=== PATIENT | female | born 1940 | race African-American/Black ===

== ENCOUNTER 2016-11-25 09:50 | Inpatient (IN) ==
[2016-11-25 11:00] LABS: Basophils # 0.1 10*3/uL (0.0-0.2); Basophils % 0.8 % (0.0-0.8); Eosinophils # 0.5 10*3/uL (0.0-0.87); Eosinophils % 5.8 % (0.00-10.9); Hematocrit 34.9 VOL% (35.7-47.0); Hemoglobin 12.3 GM/DL (12.0-16.0); Immature Granulocytes % 0.4 %; Immature Granulocytes Absolute 0.03 #; Lymphocytes # 1.6 10*3/uL (1.4-4.0); Mean Corpuscular HGB Conc 35.2 GM/DL (32-36); Mean Corpuscular Hemoglobin 32 PG (27-34); Mean Corpuscular Volume 91.4 FL (87-102); Mean Platelet Volume 10.3 FL (9.6-12.0); Monocytes # 0.6 10*3/uL (0.11-0.8); Monocytes % 7.2 % (1.7-12.7); Neutrophils # 5.1 10*3/uL (1.4-7.4); Neutrophils % 64.8 % (38.7-73.9); Platelet Count 194 T/CUMM (130-400); Red Blood Count 3.82 MC/CUMM (3.8-5.5); Red Cell Distribution Width 12.7 % (9.3-17.3); White Blood Count 7.8 T/CUMM (4-12)
--- NOTE | 2016-11-25 11:01 | EKG Report ---
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
--- NOTE | 2016-11-25 11:02 | Emergency Department Note ---
Arrival - Arrival Chief Complaint: Extremity Problem Stated Complaint: hand swollen and back pain ED Nursing Triage Note: c/o swelling in both hands. onset 2 days ago Mode of Arrival: Wheelchair Limitations: No Limitations Source: Patient, Family Time Seen by Provider: 11/25/16 10:32 - History of Present Illness HPI Narrative: This is a 76-year-old black female who is complaining of sharp chest pain, left leg pain in the calf, and swelling in both hands. She states that the pain in the left calf began about 2 days ago along with a hand swelling, but the chest pain began yesterday. The states that the patient is not taken her Eliquis for approximately 4 months because they cannot afford it. The patient states that she was diagnosed with pulmonary embolism in both lungs in July 2015, and also has extensive coronary artery disease. She currently denies any shortness of breath, fevers, or any other problems presently. Onset (ago): day(s) (2-3) Consistency: constant Severity: mild Quality: sharp Allergies/Adverse Reactions: Allergies Allergy/AdvReac Type Severity Reaction Status Date / Time Jehovah Witness No Blood AdvReac Unknown Unknown/Unable Uncoded 02/18/16 17:14 to obtain Home Medications: Home Medications Medication Instructions Recorded Confirmed Type Aspirin [Ecotrin] 81 mg PO DAILY 10/08/14 11/25/16 History Losartan Potassium 100 mg PO DAILY 10/08/14 11/25/16 History NIFEdipine [Nifedipine ER] 90 mg PO DAILY 10/08/14 11/25/16 History Pravastatin [Pravachol] 40 mg PO DAILY 10/08/14 11/25/16 History Insulin Detemir [Levemir] 50 unit SUBCUT BID 01/30/15 11/25/16 History Metoclopramide Tab [Reglan Tab] 10 mg PO QID 07/25/15 11/25/16 History Carvedilol [Coreg] 3.125 mg PO BID 11/24/16 11/25/16 History hydroCHLOROthiazide 50 mg PO DAILY 11/24/16 11/25/16 History [Hydrochlorothiazide] Review of System - Review of System 12 point system: reviewed and no additional remarkable complaints except as stated - Review of System Constitutional: Present: as per HPI. Absent: fever Cardiovascular: Present: as per HPI, chest pain Musculoskeletal: Present: as per HPI, arm pain (Left shoulder), leg pain (Calf) Medical,Surgical,& Family Hx - Medical History Cardio: History of: CAD, Hypertension, Cardiovascular Problems (stent LAD ) Neurology: History of: Dementia, Migraine No history of: Seizures Endocrine: History of: Diabetes Mellitus (IDDM), Dyslipidemia Rheumatology: History of;: Rheumatoid Arthritis (back) Respiratory: History of: Pulmonary Embolism (both lungs jul 2015) Renal: No history of: Renal Failure, Renal Problems Genitourinary: History of: Kidney Stones (laporascopic surgery) Gastrointestinal: History of: Diverticulitis/ Diverticulosis, GI Problems ( diabetic gastroparesis) No history of: Gastrointestinal Bleed, Liver Problems, Pancreatitis Musculoskeletal: History of: Back/Neck Problems (back), Herniated Disk - Surgical History Cardiac Surgeries: Sugical HX of: Cardiac Catheterization (last cath was 2014 - patent / distal small vessel dz) Neurologic Surgeries: Patient denies: Neurologic Surgery HEENT Surgeries: Surgical HX of: Tonsilectomy & Adenoidectomy Abdominal Surgeries: Surgical HX of: Cholecystectomy (2012), Colonoscopy, EGD Reproductive Surgeries: Surgical HX of;: Hysterectomy Orthopedic Surgeries: Surgical HX of;: Spinal Surgery (Lumbar laminectomy) - Family History Family History: Reports;: Family Cancer (mother), Family Diabetes, Family Heart Disease (mother,sister), Family Hypertension (mother) Denies;: Family Anesthesia Reaction, Family Stroke - Social History Smoking Status: Never smoker Frequency of Alcohol Use: None Type of Drug Use: None Exam Physical Examination: - General General appearance: [alert, in mild to moderate distress] - Head Head exam: [Present: atraumatic, normocephalic, normal inspection] - Eye Eye exam: [Present: normal appearance, PERRL, EOMI] - ENT ENT exam: [Present: normal exam, normal oropharynx, mucous membranes moist, TM' s normal bilaterally, normal external ear exam] - Neck Neck exam: [Present: normal inspection, full ROM, trachea midline] - Chest Chest inspection: [Present: normal inspection, symmetric chest wall rise. Exception: There is some reproducible chest wall pain noted] - Respiratory Respiratory exam: [Present: normal lung sounds bilaterally] - Cardiovascular Cardiovascular exam: [Present: regular rate, normal rhythm, normal heart sounds] - Abdominal Exam Abdominal exam: [Present: soft, normal bowel sounds] - Extremities Exam Extremities exam: [Present: normal inspection, full ROM. Exception: There is tenderness on palpation to the right and left calf (left greater than right). There is some mild swelling as compared to the right calf.] - Back Exam Back exam: [Present: normal inspection, full ROM] - Neurological Exam Neurological exam: [Present: alert, oriented X3] - Psychiatric Psychiatric exam: [Present: normal affect, normal mood] - Skin Skin exam: [Present: warm, dry, intact, normal color] Vital Signs: Vital Signs Temperature 96.9 F L 11/25/16 10:13 Pulse Rate 80 11/25/16 11:55 Respiratory Rate 18 11/25/16 11:55 Blood Pressure 160/92 11/25/16 11:55 O2 Sat by Pulse Oximetry 98 11/25/16 09:55 Course - Consultations Consultation #1: I spoke with Abhay and hospitalist services about this patient, and they will come down and see the patient in nonurgent. Time: 12:46 Results - Labs CBC & BMP: 11/25/16 10:44 11/25/16 10:44 Lab Results: I have reviewed the patients labs - Diagnostic Findings Procedure: CT - chest: image reviewed by me, report reviewed by me (Mild acute on chronic thrombus formation in the right lower lobe), Ultrasound: image reviewed by me, report reviewed by me (No DVT identified) Disposition Clinical Impression: Pulmonary embolism Case discussed with: patient, patient's family Disposition: Still a Patient
[2016-11-25 11:36] LABS: Blood Urea Nitrogen 22 MG/DL (7-18); Calcium 9.6 MG/DL (8.5-10.1); Glucose 275 MG/DL (74-106); Osmolality,Calculated 291.4 MOS/KG (273-304); Potassium 3.6 MMOL/L (3.5-5.1); Sodium 140 MMOL/L (136-145); Troponin I Only < 0.015 NG/ML (0.00-0.045)
[2016-11-25 11:45] LABS: Apearance,Urine CLOUDY (Clear); Bacteria,Urine Few /HPF (Few); Bilirubin,Urine Negative (Negative); Blood, Urine Negative (Negative); Glucose,Urine (UA) 150 mg/dL (Negative); Ketones,Urine Negative (Negative); Mucus,Urine Occasional /LPF (Occasional); Nitrite,Urine Negative (Negative); Protein,Urine Negative; Squamous Epithelial Cell,Urine Occasional /HPF (0-10); Urine Color Yellow (Yellow); Urine Specific Gravity 1.011 (1.001-1.035); Urine Urobilinogen < 2.0 EU/DL (0.2-1.0); WBC,Urine 5 /HPF (0-6)
--- NOTE | 2016-11-25 12:20 | Ultrasound Report ---
US venous doppler LE LT Indication: Left calf pain. Comparison: No relevant comparison. Technique: Grayscale, spectral, and color Doppler interrogation of the left lower extremity veins was performed. Augmentation and compression was performed. Findings: Grayscale, color Doppler, and pulsed Doppler evaluation of the veins of the left lower extremity demonstrates no evidence of deep venous thrombosis. IMPRESSION: No evidence of deep venous thrombosis in the left lower extremity. PROCEDURE INTERPRETED AT [facility] DEPARTMENT OF RADIOLOGY Final Report Signed by: Dr Porter Billingsley
--- NOTE | 2016-11-25 12:34 | CT Report ---
EXAM: CT chest PE study DATE: November 25, 2016 COMPARISON: CT chest PE study July 25, 2015 REASON: Chest pain TECHNIQUE: Axial images of the chest were obtained after administration of 80 cc of Omnipaque 350 intravenous contrast. Coronal/sagittal reformatted images and coronal/sagittal MIP images were also acquired. The study was performed per pulmonary embolism protocol. Total DLP was 569.1 mGy*cm. FINDINGS: Pulmonary arteries: There is mild thrombus within the distal lobar pulmonary artery within the right lower lobe, extending slightly into the segmental pulmonary arteries. There may be similar findings at the right upper lobe pulmonary artery. Some of this thrombus has a linear appearance, which suggests a chronic component. Of note, there was extensive thrombus in this region on the previous CT. The previously seen additional thrombus is no longer identified. Vascular/heart: The thoracic aorta is normal in size. Evaluation of the aorta is limited by poor opacification. The heart is normal in size, and no pericardial effusion is seen. Lymph nodes: There is a borderline prominent right hilar lymph node, measuring 0.7 cm in short axis diameter. Comparison to the previous study is difficult, but it is likely similar to before. There are several nonspecific small lymph nodes within the axilla bilaterally and mild nonspecific fat stranding within the left axilla. Other mediastinum: There is a small hiatal hernia. Chest wall: Otherwise unremarkable. The breasts are not well evaluated on this study. Lungs: There is again mild tubular bronchiectasis within the posterior basilar segment of the right lower lobe. There are also minimal scattered opacities within both lower lung zones, mainly within the lower lobes. This likely represents atelectasis and scarring. There are a few small pleural-based nodules bilaterally. The largest is located at the left lower lobe on image 91 and measures 0.4-0.5 cm in diameter. They appear stable, suggesting a benign process. No pneumothorax or pleural effusion is identified. Bones: There is multilevel degenerative change at the spine. Upper abdomen: The patient is status post cholecystectomy. No acute process is seen within the upper abdomen. IMPRESSION: 1. There is mild thrombus within the distal lobar pulmonary artery at the right lower lobe, extending slightly into the segmental pulmonary arteries. There may be similar findings at the right upper lobe, but evaluation is limited by artifact from dense contrast within the adjacent SVC. Some of this thrombus has a linear appearance, which suggests a chronic component. Of note, there was extensive thrombus in this region on the previous CT. The previously seen additional thrombus is no longer identified. 2. There is mild tubular bronchiectasis within the right lower lobe and minimal scattered atelectasis and scarring within both lower lung zones. Findings were discussed with Giovanni Styles on November 25, 2016 at 12:31 PM. This is a critical test. PROCEDURE INTERPRETED AT [facility] DEPARTMENT OF RADIOLOGY Final Report Signed by: Dr. Mary Austin
[2016-11-25] MEDS ORDERED: SODIUM CHLORIDE 0.9% 1,000 ML IV STA (12:44)
[2016-11-25] MEDS ORDERED: HEPARIN 1,000 UNIT/1 ML VIAL IV STA (12:48)
[2016-11-25] MEDS ORDERED: HEPARIN 5,000 UNIT/1 ML VIAL ONE (12:49)
[2016-11-25 13:05] LABS: PT Patient Result 10.8 SECS
--- NOTE | 2016-11-25 15:13 | Hospitalist History & Physical ---
<Abhay Tavarez - Last Filed: 11/25/16 15:49> Assessment and Plan - Time spent with patient Time spent with patient: Greater than 30 minutes (1) Pulmonary embolism Status: Acute Assessment and plan: Admit to telemetry for observation and treatment. Chest CT reveals thrombus in right lower lobe. Patient was given heparin bolus in the ER. Continue anticoagulation. 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 Repeat CBC, BMP, Mg, coagulation , ABC and troponin. Current Visit: Yes (2) Diabetes mellitus Status: Acute Assessment and plan: Sliding scale insulin. Accu-cheks ACHS. Current Visit: Yes (3) Hypertension Status: Acute Current Visit: No (4) Dehydration, mild Status: Resolved Current Visit: No History of Present Illness Chief complaint: chest pain, shortness of breath History of present illness: Ms. Hill is a 76 year old female with a past medical history significant for NSTEMI with PCI to the LAD, hypertension, IDDM, hyperlipidemia, peripheral neuropathy and DVT who presents to the ED with complaints of progressive SOB and chest pain with onset approximately 4 months ago. The patient states that she has an extensive history of blood clots and has been prescribed Eliquis, however she stopped taking the Eliquis four months ago because the prescription was too expensive. The patient's , who is at bedside, notes that the patient has been quite sedentary since her last hospital admission (July 2015). He reports that she has been having difficulty breathing, pain in her legs, with resultant decision to lie in her recliner or bed most of the day. On exam, the patient is lying comfortably in the bed with no complaints. She denies shortness of breath, chest pain, headache , N/V/D, abdominal pain. Lab work is remarkable for H&H 12.3 and 34.9, BUN 22, creatinine 1.80, glucose 275. Patient is satting 97% on room air. Chest CT revealed mild thrombus within the distal lobar pulmonary artery within the right lower lobe. Patient was given a discount prescription card during the exam and counseled on the importance of taking her anticoagulation medicine. Patient is a [employer] and has voiced that she does not want any blood products in the event transfusion appears medically necessary. However, she does voice that she wants to be a FULL CODE status. Case has been discussed with Giovanni Styles NP and Dr. Winston. Patient will be admitted to the hospital for further evaluation and treatment. Home Medications Medication Instructions Recorded Confirmed Type Losartan Potassium 100 mg PO DAILY 10/08/14 11/25/16 History NIFEdipine [Nifedipine ER] 90 mg PO DAILY 10/08/14 11/25/16 History Pravastatin [Pravachol] 40 mg PO DAILY 10/08/14 11/25/16 History Insulin Detemir [Levemir] 50 unit SUBCUT BID 01/30/15 11/25/16 History Metoclopramide Tab [Reglan Tab] 10 mg PO QID 07/25/15 11/25/16 History Carvedilol [Coreg] 3.125 mg PO BID 11/24/16 11/25/16 History hydroCHLOROthiazide 50 mg PO DAILY 11/24/16 11/25/16 History [Hydrochlorothiazide] Aspirin/Calcium Carbonate/Mag 325 mg PO DAILY 11/25/16 11/25/16 History [Aspirin Buffered 325 mg Tab] Allergies Allergy/AdvReac Type Severity Reaction Status Date / Time Jehovah Witness No Blood AdvReac Unknown Unknown/Unable Uncoded 02/18/16 17:14 to obtain Medical,Surgical,& Family Hx - Medical History Cardio: History of: CAD, Hypertension, Cardiovascular Problems (stent LAD ) Neurology: History of: Dementia, Migraine No history of: Seizures Endocrine: History of: Diabetes Mellitus (IDDM), Dyslipidemia Rheumatology: History of;: Rheumatoid Arthritis (back) Respiratory: History of: Pulmonary Embolism (both lungs jul 2015) Renal: No history of: Renal Failure, Renal Problems Genitourinary: History of: Kidney Stones (laporascopic surgery) Gastrointestinal: History of: Diverticulitis/ Diverticulosis, GI Problems ( diabetic gastroparesis) No history of: Gastrointestinal Bleed, Liver Problems, Pancreatitis Musculoskeletal: History of: Back/Neck Problems (back), Herniated Disk - Surgical History Cardiac Surgeries: Sugical HX of: Cardiac Catheterization (last cath was 2014 - patent / distal small vessel dz) Neurologic Surgeries: Patient denies: Neurologic Surgery HEENT Surgeries: Surgical HX of: Tonsilectomy & Adenoidectomy Abdominal Surgeries: Surgical HX of: Cholecystectomy (2012), Colonoscopy, EGD Reproductive Surgeries: Surgical HX of;: Hysterectomy Orthopedic Surgeries: Surgical HX of;: Spinal Surgery (Lumbar laminectomy) - Family History Family History: Reports;: Family Cancer (mother), Family Diabetes, Family Heart Disease (mother,sister), Family Hypertension (mother) Denies;: Family Anesthesia Reaction, Family Stroke - Social History Smoking Status: Never smoker Frequency of Alcohol Use: None Type of Drug Use: None Marital Status: Lives With:: Spouse Functional capacity: independent ambulation - Constitutional Constitutional: Present: fatigue, weakness - EENT Eyes: Present: blurry vision, requires corrective lense Ears: Absent: decreased hearing, ear pain - Cardiovascular Cardiovascular: Present: chest pain at rest, dyspnea, dyspnea on exertion. Absent: lightheadedness, palpitations - Respiratory Respiratory: Present: cough, dyspnea. Absent: wheezing - Genitourinary Genitourinary: Absent: difficulty urinating, flank pain - Neurological Neurological: Absent: confusion, syncope - Psychiatric Psychiatric: Absent: anxiety, depression - Endocrine Endocrine: Present: cold intolerance, fatigue. Absent: heat intolerance - Hematologic/Lymphatic Hematologic/Lymphatic: Absent: easy bleeding, easy bruising Exam - Constitutional Vitals: Period Temp Pulse Resp BP Sys/Barboza Pulse Ox Last 24 Hr 96.9 F-96.9 F 80-83 18-18 121-160/89-92 98 Exam: General appearance: normal weight, no acute distress - Head Head exam: Present: normocephalic, atraumatic - Eye Eye exam: Present: EOMI. Absent: conjunctival injection, nystagmus Pupils: Present: KAUSHIK, normal accommodation - ENT ENT exam: Present: normal exam, normal external ear exam - Neck Neck exam: Present: normal inspection. Absent: lymphadenopathy, tenderness, thyromegaly - Respiratory Respiratory exam: Present: clear to auscultation bilaterally. Absent: rales, rhonchi, wheezes - Cardiovascular Cardiovascular exam: Present: regular rate and rhythm. Absent: carotid bruit, gallop, rubs - GI/Abdominal GI/Abdominal exam: Present: normal bowel sounds. Absent: ascites, distended, mass - Extremities Exam Extremities exam: Present: normal inspection, normal capillary refill. Absent: edema - Back Exam Back exam: Absent: CVA tenderness (L), CVA tenderness (R) - Neurological Exam Neurological exam: Present: alert, oriented X3 - Psychiatric Psychiatric exam: Present: normal affect, normal mood - Skin Skin exam: Present: normal color, warm, dry Results - Labs CBC & BMP: 11/25/16 10:44 11/25/16 10:44 Lab Results: I have reviewed the past 24 hour labs - EKG EKG results: interpreted by ALEJANDRA - Diagnostic Findings Procedure: CT - chest: image reviewed by me, report reviewed by me (thrombus in lower pulm artery) <Savi Winston - Last Filed: 11/25/16 17:35> History of Present Illness History of present illness: Ms. Hill is a 76 year old female followed by her primary care physician Dr. 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 reports that she has been out of her medication for approximately 3 months as it was too expensive. He reports he communicated this with his primary care provider but was unable to get any medication. Patient reports that her pain did not radiate but was noted to be in the middle of her chest. She states that it was non-positional, nonreproducible and not associated with position changes. It was not associated with diaphoresis but was associated with nausea. He denies any vomiting. She does report some palpitations. She did report shortness of breath with dyspnea on exertion. She was treated November 10 for bronchitis with Levaquin. No fever. Today her shortness of breath worsened in her right leg pain worsen so she decided to come to the emergency department for further evaluation and treatment. She was found to have a PE in the right lower lobe and left lower extremity was negative for DVT. We were asked to admit for further evaluation and treatment. Patient is awake alert and oriented to person place and situation lying in the hospital bed in no acute distress HEENT exam reveals pupils are equal and reactive to light extraocular muscles are intact sclerae clear, pink nares are patent no discharge or epistaxis noted oropharynx is clear with dry mucous membranes. Neck is supple no lymphadenopathy or thyromegaly appreciated no JVD. Cardiovascular exam reveals regular rate and rhythm normal S1-S2 no obvious murmurs rubs or gallops. Lungs are clear to auscultation bilaterally with good aeration nonlabored breathing noted Abdomen is soft nontender nondistended positive bowel sounds regular megaly or masses appreciated Extremity exam is warm and well-perfused no clubbing cyanosis. She has trace edema of the right lower extremity Labs and investigative studies reviewed. Assessment and plan: Acute right lower lobe PE in a patient with known PTE Acute renal failure likely due to dehydration History of hypertension, essential Coronary artery disease See orders Exam - Constitutional Vitals: Period Temp Pulse Resp BP Sys/Barboza Pulse Ox Last 24 Hr 96.9 F-98.6 F 80-88 16-18 121-163/87-95 94-98 Results - Labs CBC & BMP: 11/25/16 10:44 11/25/16 10:44
[2016-11-25] MEDS ORDERED: DEXTROSE 50% 25 GM/50 ML VIAL IV PRN (17:18)
[2016-11-25] MEDS ORDERED: GLUCAGON 1 MG VIAL IM PRN (17:18)
[2016-11-25] MEDS: HEPARIN DRIP 25,000 UNITS/500 ML PREMIX IV SCH (18:29)
[2016-11-25] MEDS: SODIUM CHLORIDE 0.9% 1,000 ML IV SCH (18:30)
--- NOTE | 2016-11-25 18:39 | Ultrasound Report ---
Right lower extremity venous Doppler with koroma scale, Spectral Doppler and color-flow analysis performed and interpreted. Indication: Pulmonary thromboembolism. Scanning over the right common femoral vein, superficial femoral vein, greater saphenous vein and popliteal vein demonstrates normal compressibility, color flow, and augmentation. Impression: No evidence of right lower extremity deep venous thrombosis. PROCEDURE INTERPRETED AT [facility] DEPARTMENT OF RADIOLOGY Final Report Signed by: Dr. Earlene Delarosa
[2016-11-25] MEDS: CARVEDILOL 3.125 MG TABLET PO SCH (20:47)
[2016-11-25] MEDS: METOCLOPRAMIDE 10 MG TABLET PO SCH (20:47)
[2016-11-25] MEDS: INSULIN LISPRO 100 UNIT/ML SUBCUT SCH (20:47)
[2016-11-26 02:29] LABS: Basophils # 0.1 10*3/uL (0.0-0.2); Basophils % 0.8 % (0.0-0.8); Eosinophils # 0.6 10*3/uL (0.0-0.87); Eosinophils % 7.4 % (0.00-10.9); Hematocrit 31.7 VOL% (35.7-47.0); Hemoglobin 11.1 GM/DL (12.0-16.0); Immature Granulocytes % 0.4 %; Immature Granulocytes Absolute 0.03 #; Lymphocytes # 2.2 10*3/uL (1.4-4.0); Lymphocytes % 29.1 % (21.3-54.2); Mean Corpuscular Hemoglobin 32 PG (27-34); Mean Corpuscular Volume 91.9 FL (87-102); Mean Platelet Volume 10.3 FL (9.6-12.0); Monocytes # 0.7 10*3/uL (0.11-0.8); Monocytes % 9.4 % (1.7-12.7); Neutrophils % 52.9 % (38.7-73.9); Platelet Count 187 T/CUMM (130-400); Red Blood Count 3.45 MC/CUMM (3.8-5.5); Red Cell Distribution Width 12.8 % (9.3-17.3); White Blood Count 7.6 T/CUMM (4-12)
[2016-11-26 03:03] LABS: Albumin 2.9 G/DL (3.4-5.0); Calcium 8.6 MG/DL (8.5-10.1); Free T4 (Free Thyroxine) 1.04 NG/DL (0.76-1.46); Osmolality,Calculated 287.4 MOS/KG (273-304); Phosphorous 2.6 MG/DL (2.5-4.9); Potassium 3.3 MMOL/L (3.5-5.1); Thyroid Stimulating Hormone 2.59 uIU/ml (0.358-3.74)
[2016-11-26] MEDS: SODIUM CHLORIDE 0.9% 1,000 ML IV SCH ×3 (06:05→21:36)
[2016-11-26] MEDS: INSULIN LISPRO 100 UNIT/ML SUBCUT SCH ×4 (08:37→21:33)
[2016-11-26] MEDS: ASPIRIN EC 325 MG TABLET PO SCH (08:38)
[2016-11-26] MEDS: METOCLOPRAMIDE 10 MG TABLET PO SCH ×4 (08:38→21:32)
[2016-11-26] MEDS: CARVEDILOL 3.125 MG TABLET PO SCH ×2 (08:38→21:32)
[2016-11-26] MEDS: PRAVASTATIN 40 MG TABLET PO SCH (08:38)
--- NOTE | 2016-11-26 09:01 | Discharge Summary ---
<Abhay Tavarez - Last Filed: 11/26/16 12:32> Hospital Course - Hospital Course Hospital Course: Ms. Hill is a 76-year-old -H[place]ian female with a history of PTE who presented to the hospital with a chief complaint of right leg pain shortness of breath with intermittent mild to moderate sharp pleuritic chest pain. On admission, she was found to have a PE in the right lower lobe on CT scan and left lower extremity was negative for DVT. Patient was admitted to the hospital medicine service on 11/25/2016 for further evaluation and treatment. Subsequent venous Doppler of right lower extremity was also negative for DVT. Patient notes that she was previously hospitalized in July 2015, diagnosed with pulmonary embolism and subsequently prescribed Eliquis daily. Patient admits that she has not been compliant with Eliquis as it was too expensive. Upon further questioning, it was discovered that the patient does not have prescription coverage through Medicare nor an assistance program. intially stated he could not afford the medication $180/month. For this reason, the patient was started on Coumadin with a lovenox bridge. Pulmonolgy was consulted to assist with PE management and outpatient follow-up for potential change to Eliquis. admitted 11/27 that they applied for the assistance program and was found to not be eligible for the assistance program. He states he does not want her to go on Coumadin despite its affordability and wants her to be discharged on Eliquis. Patient has been counseled on the importance of taking this prescription to prevent further blood clots. She was also given a discount card for prescriptions. Pt was also noted to have dehydration with acute renal failure which improved with IVF. Patient will be discharged home to self with appropriate outpatient follow-up with pulmonology and her PCP. - Time spent with patient Time with patient DS: Greater than 30 minutes Diagnosis - Discharge Diagnosis (1) Pulmonary embolism Status: Acute (2) Diabetes mellitus Status: Acute (3) Hypertension Status: Acute Specialty Discharge - Follow Up or Referrals Follow up with: Cory Eden MD [Physician] - 1 Month Vickie Ambrose [Physician] - 2 Weeks Discharge Plan - Discharge Data Disposition: Disch To Home/Self Care - Discharge Medications New Apixaban [Eliquis] 5 mg PO BID #30 tablet Continue Pravastatin [Pravachol] 40 mg PO DAILY NIFEdipine [Nifedipine ER] 90 mg PO DAILY Losartan Potassium 100 mg PO DAILY Insulin Detemir [Levemir] 50 unit SUBCUT BID Metoclopramide Tab [Reglan Tab] 10 mg PO QID Carvedilol [Coreg] 3.125 mg PO BID Aspirin/Calcium Carbonate/Mag [Aspirin Buffered 325 mg Tab] 325 mg PO DAILY Changed hydroCHLOROthiazide [Hydrochlorothiazide] 50 mg PO DAILY PRN #0 PRN Reason: Edema - Follow Up or Referral - Forms/Instructions Exam - Constitutional Vitals: Period Temp Pulse Resp BP Sys/Barboza Pulse Ox Last 24 Hr 95.6 F-99.3 F 75-89 18-22 117-162/67-84 94-98 Discharge Results Procedures and tests throughout hospitalization: Pending Orders 11/25/16 17:38 Thrombophilia Prof Stat Labs on day of discharge: Labs from last 24 hours 11/27/16 11/27/16 11/27/16 08:11 08:01 00:44 Circ Anticoag PTT 85.0 H D 113.0 H* D POC Glucose 172 H 11/26/16 11/26/16 11/26/16 19:58 16:10 16:03 Circ Anticoag PTT 187.2 H* D POC Glucose 268 H 245 H 11/26/16 11:52 Circ Anticoag PTT POC Glucose 294 H DS: Provider Date of admission: 11/25/16 13:33 Primary care physician: . No PCP Attending physician on admission: Savi Winston MD Consults: 11/25/16 17:16 Consult to Case Mgmt/Social Srvs [CONS] Routine Reason for Case Mgmt/Social Srvs: Other Consult Comment: check copay for patient for Eliquis/ insurance pre-approval 11/26/16 12:05 Consult to Pharmacy [CONS] Routine Reason for Pharmacy Consult: Other Comment: coumadin education 11/26/16 12:30 Consult to Physician [CONS] Routine Comment: PE Consulting Provider: Cory Eden When should Consulting Provider be notified: Now Consult Notification Comment: LEFT MESSAGE AT [id number] Discharging clinician: Abhay ELLINGTON Expected date of discharge: 11/26/16 <Savi Winston - Last Filed: 11/27/16 11:35> Hospital Course - Time spent with patient Time with patient DS: Greater than 30 minutes (43 minutes) Diagnosis - Discharge Diagnosis (1) Acute renal failure Status: Resolved (2) Diabetes mellitus Status: Chronic (3) Pulmonary embolism Status: Acute (4) Chest pain Status: Acute (5) Hypertension Status: Chronic (6) History of pulmonary embolus (PE) Status: Chronic (7) Dehydration, mild Status: Resolved (8) Chronic renal failure, stage 3 (moderate) Status: Chronic Discharge Plan - Discharge Data Condition at Discharge: Stable Discharge Diet: diabetic diet, heart healthy Contact your physician if you experience:: fever over 101, Difficulty voiding, Redness or swelling, Nausea/Vomiting, Shortness of breath, Bleeding, pain uncontrolled by pain medications Exam - Constitutional Exam: See progress note from 11/26 as physical exam is unchanged.
[2016-11-26] MEDS ORDERED: HEPARIN 5,000 UNIT/1 ML VIAL IV ONE (10:05)
--- NOTE | 2016-11-26 15:01 | Hospitalist Progress Note ---
Hospitalist: Subjective Interval history: Patient reports pain in her right leg is better. She denies any chest pain. Shortness of breath is better. She denies any fevers or chills. Dry cough. Tolerating oral intake well. Exam - Constitutional Vitals: Period Temp Pulse Resp BP Sys/Barboza Pulse Ox Last 24 Hr 97.2 F-98.6 F 71-88 16-20 135-163/71-95 94-100 Exam: Patient is awake alert and oriented to person place and situation lying in the hospital bed in no acute distress HEENT exam: Clear sclera. No epistaxis. Moist mucous membranes Neck: no JVD. Cardiovascular exam reveals regular rate and rhythm normal S1-S2 no obvious murmurs rubs or gallops. Lungs are clear to auscultation bilaterally with good aeration nonlabored breathing noted Abdomen is soft nontender nondistended positive bowel sounds regular megaly or masses appreciated Extremity exam is warm and well-perfused no clubbing, cyanosis, edema Results - Labs CBC & BMP: 11/26/16 02:19 11/26/16 02:19 - Impressions Acute right lower lobe PE in a patient with known PTE-on a heparin drip. Long discussion with patient and family. Due to her insurance limitations, unable to get Eliquis without providing patient financials to [employer] for discount program. We could provide a 30 day supply but I am concerned about continuing this medication long-term as patient initially was unable to afford this medication. I recommend starting Coumadin at this point as an outpatient can financially afford this medication and through home health could have levels checked and adjusted accordingly. still wants to pursue Eliquis. Patient is also a Jehovah witness and if she should bleed or have complications, we would not be able to transfuse packed red blood cells. For these reasons I recommend Coumadin. Will consult pulmonology for further recommendations as will need close follow-up outpatient. Acute renal failure likely due to dehydration-improving with hydration. Recheck renal function in the a.m. History of hypertension, essential-continue home meds Coronary artery disease-continue medical management Discussed with patient, , PA and all questions answered.
--- NOTE | 2016-11-26 15:24 | Pulmonology Consult Note ---
Assessment and Plan (1) Renal insufficiency, mild Status: Chronic Assessment and plan: The patient has a creatinine of 1.6. Current Visit: No (2) CAD (coronary artery disease) Status: Chronic Assessment and plan: The patient has had a stent placed in the past. She is not having any angina now. Current Visit: No (3) Hypertension Status: Acute Assessment and plan: Her systolic blood pressure is a little elevated now. She will continue with medications. Current Visit: No (4) Pulmonary embolism Status: Acute Assessment and plan: Patient has had recurrent pulmonary emboli but has a very low clot burden now. I am not sure this is causing any symptoms. It is unclear exactly why she is so short of breath. She actually looks comfortable now. She obviously has clots but no clots in her veins of her legs. She is high risk for anticoagulation since she will not take blood. I would keep her anticoagulation on the low side. Current Visit: Yes (5) Diabetes mellitus Status: Acute Assessment and plan: Her glucose is over 200 now. Current Visit: Yes History of Present Illness Chief complaint: Pulmonary emboli History of present illness: Ms. Hill is a 76 year old black female that is a Catholic and comes in now with shortness of breath. She has had an abnormal CT of her chest that shows pulmonary emboli. She is a patient who is overweight with diabetes and hypertension hyperlipidemia who has had previous stent placement for coronary artery disease. She has taken some type of blood thinner for a number of years because of pulmonary emboli. Her family says it has been about 3 years. She was told at one time she had clots in her right leg but I cannot find a positive Doppler report. She clearly had considerable pulmonary emboli last year on CT. The clot burden is much smaller now. She says she was taken Eliquis last year but stopped it about 3 months ago because of expense. She says she has been short of breath off and on for quite some time. She has no history of smoking or other lung disease. She does have a history of dementia also. Home Medications Medication Instructions Recorded Confirmed Type Losartan Potassium 100 mg PO DAILY 10/08/14 11/25/16 History NIFEdipine [Nifedipine ER] 90 mg PO DAILY 10/08/14 11/25/16 History Pravastatin [Pravachol] 40 mg PO DAILY 10/08/14 11/25/16 History Insulin Detemir [Levemir] 50 unit SUBCUT BID 01/30/15 11/25/16 History Metoclopramide Tab [Reglan Tab] 10 mg PO QID 07/25/15 11/25/16 History Carvedilol [Coreg] 3.125 mg PO BID 11/24/16 11/25/16 History hydroCHLOROthiazide 50 mg PO DAILY 11/24/16 11/25/16 History [Hydrochlorothiazide] Aspirin/Calcium Carbonate/Mag 325 mg PO DAILY 11/25/16 11/25/16 History [Aspirin Buffered 325 mg Tab] Allergies Allergy/AdvReac Type Severity Reaction Status Date / Time Jehovah Witness No Blood AdvReac Unknown Unknown/Unable Uncoded 02/18/16 17:14 to obtain - Constitutional Constitutional: Present: fatigue, weight gain. Absent: chills, fever(s), weight loss - EENT Eyes: Present: blurry vision, requires corrective lense Ears: Absent: decreased hearing Nose, mouth and throat: Absent: dysphagia, headache(s), sinus pressure - Cardiovascular Cardiovascular: Present: chest pain at rest, dyspnea, dyspnea on exertion. Absent: edema, orthopnea, palpitations - Respiratory Respiratory: Present: cough, dyspnea. Absent: hemoptysis, wheezing, pain on inspiration - Gastrointestinal Gastrointestinal: Absent: abdominal pain, change in bowel habits, dysphagia, nausea, vomiting - Genitourinary Genitourinary: Absent: dysuria, hematuria, urinary frequency - Musculoskeletal Musculoskeletal: Present: muscle weakness. Absent: arthralgias - Neurological Neurological: Absent: abnormal speech, focal weakness, paresthesias - Psychiatric Psychiatric: Present: memory loss. Absent: anxiety Exam (Pulmonay) H&P - Constitutional Vitals: Period Temp Pulse Resp BP Sys/Barboza Pulse Ox Last 24 Hr 97.2 F-98.6 F 71-88 16-20 135-163/71-95 94-100 General appearance: no acute distress (She looks comfortable lying in bed.), over weight - Head Head exam: Present: normal inspection, normocephalic - Eye Eye exam: Present: EOMI. Absent: scleral icterus Pupils: Present: KAUSHIK - ENT ENT exam: Present: normal exam - Neck Neck exam: Present: normal inspection. Absent: lymphadenopathy, thyromegaly - Respiratory Respiratory exam: Present: clear to auscultation bilaterally. Absent: rales, wheezes - Cardiovascular Cardiovascular exam: Present: regular rate and rhythm. Absent: gallop, systolic murmur - GI/Abdominal GI/Abdominal exam: Present: normal bowel sounds, soft. Absent: organomegaly, tenderness - Extremities Exam Extremities exam: Absent: calf tenderness, edema - Back Exam Back exam: Present: normal inspection - Neurological Exam Neurological exam: Present: alert, oriented X3, CN II-XII intact - Psychiatric Psychiatric exam: Present: normal affect - Skin Skin exam: Present: warm, dry Medical,Surgical,& Family Hx - Medical History Cardio: History of: CAD, Hypertension, Cardiovascular Problems (stent LAD ) Neurology: History of: Dementia, Migraine No history of: Seizures Endocrine: History of: Diabetes Mellitus (IDDM), Dyslipidemia Rheumatology: History of;: Rheumatoid Arthritis (back) Respiratory: History of: Pulmonary Embolism (both lungs jul 2015) Renal: No history of: Renal Failure, Renal Problems Genitourinary: History of: Kidney Stones (laporascopic surgery) Gastrointestinal: History of: Diverticulitis/ Diverticulosis, GI Problems ( diabetic gastroparesis) No history of: Gastrointestinal Bleed, Liver Problems, Pancreatitis Musculoskeletal: History of: Back/Neck Problems (back), Herniated Disk - Surgical History Cardiac Surgeries: Sugical HX of: Cardiac Catheterization (last cath was 2014 - patent / distal small vessel dz) Neurologic Surgeries: Patient denies: Neurologic Surgery HEENT Surgeries: Surgical HX of: Tonsilectomy & Adenoidectomy Abdominal Surgeries: Surgical HX of: Cholecystectomy (2012), Colonoscopy, EGD Reproductive Surgeries: Surgical HX of;: Hysterectomy Orthopedic Surgeries: Surgical HX of;: Spinal Surgery (Lumbar laminectomy) - Family History Family History: Reports;: Family Cancer (mother), Family Diabetes, Family Heart Disease (mother,sister), Family Hypertension (mother) Denies;: Family Anesthesia Reaction, Family Stroke - Social History Smoking Status: Never smoker Frequency of Alcohol Use: None Type of Drug Use: None Results - Labs CBC & BMP: 11/26/16 02:19 11/26/16 02:19 - Diagnostic Findings Procedure: CT - chest: image reviewed by me, report reviewed by me (CT does show evidence of mild pulmonary emboli bilaterally. This was much more extensive last year.), Ultrasound: report reviewed by me (Venous Dopplers are negative.)
[2016-11-26] MEDS ORDERED: WARFARIN 5 MG TABLET ONE (17:04)
[2016-11-26] MEDS: HEPARIN DRIP 25,000 UNITS/500 ML PREMIX IV SCH (17:07)
[2016-11-26] MEDS ORDERED: WARFARIN 10 MG TABLET PO SCH (18:00)
--- NOTE | 2016-11-26 21:31 | ECHO Report ---
Byron Hill Exam Date: 11/26/2016 08:52 Referring Physician: Technologist: loc Jacobs ARDMS, RVT Age: 76 Ht (in): 66 Wt (lb): 202 Gender: F Exam Location: [facility] Echo Indications: Weakness, Other fatigue, Essential (primary) hypertension, Chest pain, unspecified, Shortness of breath, Dementia, Pulmonary embolism, IDDM, Dehydration, Hyperlipidemia, CAD w/previous stent BP: 135 / 73 HR: 76 Rhythm: Sinus Technical Quality: Good IMPRESSIONS Moderate left ventricular hypertrophy. Left ventricular ejection fraction is estimated at > 55%. The left atrium --mild apical enlargement Aortic valve sclerosis . Mild tricuspid valve regurgitation. Tricuspid regurgitation velocities suggest a PAP of 38 mmHg. MEASUREMENTS (Male / Female) Normal Values 2D ECHO LV Diastolic Diameter PLAX 3.9 cm 4.2 - 5.9 / 3.9 - 5.3 cm LV Systolic Diameter PLAX 3.1 cm LV Fractional Shortening PLAX 19.4 % IVS Diastolic Thickness 1.6 cm 0.6 - 1.0 / 0.6 - 0.9 cm LVPW Diastolic Thickness 1.6 cm 0.6 - 1.0 / 0.6 - 0.9 cm RV Internal Dim ED PLAX 2.5 cm Aortic Root Diameter 3.0 cm LA Systolic Diameter LX 3.4 cm 3.0 - 4.0 / 2.7 - 3.8 cm DOPPLER TR Peak Velocity 263.0 cm/s TR Peak Gradient 27.7 mmHg FINDINGS Left Ventricle Normal left ventricular cavity size. Moderate left ventricular hypertrophy. Left ventricular ejection fraction is estimated at > 55%. Right Ventricle normal rv size Right Atrium The right atrium is normal; Left Atrium The left atrium --mild apical enlargement Mitral Valve Morphologically normal mitral valve without significant stenosis or prolapse. There is no mitral regurgitation. Aortic Valve aortic valve sclerosis . There is no aortic regurgitation. Tricuspid Valve Morphologically normal tricuspid valve. Mild tricuspid valve regurgitation. Tricuspid regurgitation velocities suggest a PAP of 38 mmHg. Pulmonic Valve Morphologically normal pulmonic valve without significant stenosis. There is no pulmonic regurgitation. Pericardium Normal pericardium without effusion. Aorta Normal ascending aorta dimension. Duong Merino MD (Electronically Signed) Final Date: 26 November 2016 21:13
[2016-11-26] MEDS: INSULIN GLARGINE 100 UNIT/ML SUBCUT SCH (21:32)
--- NOTE | 2016-11-27 08:40 | Pulmonology Progress Note ---
Pulmonary - PN: Subj Interval history: The patient is a 76-year-old black lady that has had recurrent pulmonary emboli. She is a Orthodox and does not want blood. She has been tolerating anticoagulation so far. Her Dopplers were negative for DVT. She says she is comfortable now and not having any chest pain or shortness of breath. Her PTT is prolonged. She has been started on Coumadin. Overall she is stable. Exam (Progress Note) - Constitutional Vitals: Period Temp Pulse Resp BP Sys/Barboza Pulse Ox Last 24 Hr 95.6 F-99.3 F 75-89 18-22 117-162/67-84 94-98 Exam: General appearance: no acute distress (She is sitting up eating and is quite comfortable.) - Head Head exam: Present: normal inspection, normocephalic - Eye Eye exam: Present: EOMI. Absent: scleral icterus Pupils: Present: KAUSHIK - ENT ENT exam: Present: normal exam - Neck Neck exam: Present: normal inspection. Absent: lymphadenopathy, thyromegaly - Respiratory Respiratory exam: Present: clear to auscultation bilaterally. She has no rales or wheezing. - Cardiovascular Cardiovascular exam: Present: regular rate and rhythm. Absent: gallop, systolic murmur - GI/Abdominal GI/Abdominal exam: Present: normal bowel sounds, soft. Absent: organomegaly, tenderness - Extremities Exam Extremities exam: Absent: calf tenderness, edema. There are no signs of phlebitis now. - Back Exam Back exam: Present: normal inspection - Neurological Exam Neurological exam: Present: alert, oriented X3, CN II-XII intact - Psychiatric Psychiatric exam: Present: normal affect - Skin Skin exam: Present: warm, dry Results - Labs CBC & BMP: 11/26/16 02:19 11/26/16 02:19 Assessment and Plan (1) Renal insufficiency, mild Status: Chronic Assessment and plan: The patient has a creatinine of 1.6. Current Visit: No (2) CAD (coronary artery disease) Status: Chronic Assessment and plan: The patient has had a stent placed in the past. She is not having any angina now. Current Visit: No (3) Hypertension Status: Acute Assessment and plan: Her blood pressure is doing better today. Current Visit: No (4) Pulmonary embolism Status: Acute Assessment and plan: Patient has had recurrent pulmonary emboli but has a very low clot burden now. I am not sure this is causing any symptoms. It is unclear exactly why she is so short of breath. She actually looks comfortable now. She is not having any shortness of breath now. She obviously has clots but no clots in her veins of her legs. She is high risk for anticoagulation since she will not take blood. I would keep her anticoagulation on the low side. Today she is is quite stable and not having any distress. She can probably go home when her INR is around 2. She probably needs to keep this on the low side in the future. Current Visit: Yes (5) Diabetes mellitus Status: Acute Assessment and plan: Her glucose is 172 this morning. Current Visit: Yes
[2016-11-27] MEDS: SODIUM CHLORIDE 0.9% 1,000 ML IV SCH (09:37)
[2016-11-27] MEDS: INSULIN LISPRO 100 UNIT/ML SUBCUT SCH ×2 (09:38→11:54)
[2016-11-27] MEDS: INSULIN GLARGINE 100 UNIT/ML SUBCUT SCH (09:38)
[2016-11-27] MEDS: ASPIRIN EC 325 MG TABLET PO SCH (09:39)
[2016-11-27] MEDS: PRAVASTATIN 40 MG TABLET PO SCH (09:39)
[2016-11-27] MEDS: METOCLOPRAMIDE 10 MG TABLET PO SCH ×2 (09:39→11:55)
[2016-11-27] MEDS: CARVEDILOL 3.125 MG TABLET PO SCH (09:39)
[2016-11-27 11:35] VITALS: BP 122/66
[2016-12-01 12:39] LABS: Fibrinogen, P 305 mg/dL (200 - 430); INR 1.1; Protein C Activity Plasma 155 % (70 - 150); Thrombin Time (Bovine), P 15 sec (15 - 23)
== END 2016-11-27 13:30 | disposition home or self-care (01) | DRG 176 ==
LOC: N.ED 09:50 → N.EDINP 13:33 → N.TELEN 16:07
PROVIDERS: ADMIT Pediatrics; ATTEND Pediatrics

== ENCOUNTER 2017-02-07 09:33 | Inpatient (IN) ==
[2017-02-07] MEDS ORDERED: ONDANSETRON 4 MG/2 ML VIAL ONE (10:02)
[2017-02-07] MEDS ORDERED: MORPHINE 2 MG/1 ML SYRINGE ONE (10:02)
[2017-02-07] MEDS ORDERED: ONDANSETRON 4 MG/2 ML VIAL IV STA (10:08)
[2017-02-07] MEDS ORDERED: MORPHINE 2 MG/1 ML SYRINGE IV STA (10:08)
[2017-02-07 10:18] LABS: Basophils # 0.1 10*3/uL (0.0-0.2); Basophils % 0.7 % (0.0-0.8); Eosinophils # 0.2 10*3/uL (0.0-0.87); Eosinophils % 2.8 % (0.00-10.9); Hematocrit 34.8 VOL% (35.7-47.0); Hemoglobin 12.2 GM/DL (12.0-16.0); Immature Granulocytes % 0.3 %; Immature Granulocytes Absolute 0.02 #; Lymphocytes # 2.1 10*3/uL (1.4-4.0); Lymphocytes % 28.6 % (21.3-54.2); Mean Corpuscular HGB Conc 35.1 GM/DL (32-36); Mean Corpuscular Hemoglobin 32 PG (27-34); Mean Corpuscular Volume 91.1 FL (87-102); Mean Platelet Volume 10.4 FL (9.6-12.0); Monocytes # 0.7 10*3/uL (0.11-0.8); Monocytes % 9.3 % (1.7-12.7); Neutrophils # 4.2 10*3/uL (1.4-7.4); Neutrophils % 58.3 % (38.7-73.9); Platelet Count 255 T/CUMM (130-400); Red Blood Count 3.82 MC/CUMM (3.8-5.5); Red Cell Distribution Width 12.5 % (9.3-17.3); White Blood Count 7.2 T/CUMM (4-12)
--- NOTE | 2017-02-07 10:18 | XRay Report ---
XR chest 1V portable Indication: Chest pain. Chest one view: Comparison 12/10/2016. The heart size and mediastinal contour are normal. The lungs and pleural spaces are clear. Bones are unremarkable. Impression: Negative chest. PROCEDURE INTERPRETED AT [facility] DEPARTMENT OF RADIOLOGY Final Report Signed by: Nirmal Oliveira M.D.
[2017-02-07 10:31] LABS: INR 1.1; PT Patient Result 11.4 SECS; Partial Thromboplastin Time 29.3 SECS (0-40)
[2017-02-07 10:39] LABS: Alanine Aminotransferase 16 U/L (13-56); Albumin 3.5 G/DL (3.4-5.0); Alkaline Phosphatase 68 U/L (45-117); Aspartate Amino Transferase 16 U/L (0-37); Blood Urea Nitrogen 22 MG/DL (7-18); Calcium 9.7 MG/DL (8.5-10.1); Glucose 191 MG/DL (74-106); Osmolality,Calculated 286.4 MOS/KG (273-304); Potassium 3.3 MMOL/L (3.5-5.1); Sodium 140 MMOL/L (136-145); Total Protein 7.5 G/DL (6.4-8.3); Troponin I Only 0.016 NG/ML (0.00-0.045)
[2017-02-07] MEDS ORDERED: POTASSIUM CHLORIDE 20 MEQ TABLET PO STA (12:09)
[2017-02-07] MEDS ORDERED: POTASSIUM CHLORIDE 20 MEQ TABLET PO ONE (12:22)
--- NOTE | 2017-02-07 13:26 | Emergency Department Note ---
ICarmen Gwan, am scribing for, and in the presence of, Madyson Baltazar DO 09:59 . IGiovanny Debra, DO, personally performed the services described in this documentation, ascribed by Blaze Morales in my presence, and it is both accurate and complete 325 . Arrival - Arrival Chief Complaint: Chest Pain Stated Complaint: chest pain ED Nursing Triage Note: C/o midsternal chest pain and SOB with exertion-onset yesterday. Denies N/V. Mode of Arrival: Ambulatory Limitations: No Limitations Source: Patient, Old Records Reviewed, RN Notes Reviewed - History of Present Illness HPI Narrative: Patient is a 76 y/o female who presents to the ED with a c/o midsternal chest pain and SOB with an onset yesterday. Pt has a PMHx of CAD, HTN, stent placement , dementia, dyslipidemia, IDDM, RA and PE bilateral lungs 07/2015. stated that patient c/o chest pain every morning. Her pain worsened yesterday. Patient confirmed that she has had edema to bilateral lower extremities. Patient stated that her SOB worsens with exertion. She denies any N/V. Patient is followed by Dr. Ambrose and Dr. Harrison. During exam, patient did not display any signs of distress. She stated that she is not in any pain now. No other problems/complaints reported in ED. Onset (ago): day(s) Consistency: constant Severity: moderate Date of Last Menstrual Period: hysterectomy Allergies/Adverse Reactions: Allergies Allergy/AdvReac Type Severity Reaction Status Date / Time No Known Allergies Allergy Verified 02/07/17 09:38 Home Medications: Home Medications Medication Instructions Recorded Confirmed Type Losartan Potassium 100 mg PO DAILY 10/08/14 11/25/16 History NIFEdipine [Nifedipine ER] 90 mg PO DAILY 10/08/14 11/25/16 History Pravastatin [Pravachol] 40 mg PO DAILY 10/08/14 11/25/16 History Insulin Detemir [Levemir] 50 unit SUBCUT BID 01/30/15 11/25/16 History Metoclopramide Tab [Reglan Tab] 10 mg PO QID 07/25/15 11/25/16 History Carvedilol [Coreg] 3.125 mg PO BID 11/24/16 11/25/16 History Aspirin/Calcium Carbonate/Mag 325 mg PO DAILY 11/25/16 11/25/16 History [Aspirin Buffered 325 mg Tab] Apixaban [Eliquis] 5 mg PO BID #30 tablet 11/27/16 Rx hydroCHLOROthiazide 50 mg PO DAILY PRN #0 11/27/16 11/25/16 Rx [Hydrochlorothiazide] Tramadol HCl [Ultram] 50 mg PO Q4-6H #12 tablet 12/10/16 Rx Review of System - Review of System 12 point system: reviewed and no additional remarkable complaints except as stated - Review of System Constitutional: Absent: chills, fever Respiratory: Present: as per HPI, other (shortness of breathe) Cardiovascular: Present: as per HPI, chest pain. Absent: palpitations Gastrointestinal: Absent: abdominal pain, diarrhea Genitourinary female: Absent: dysuria, discharge Medical,Surgical,& Family Hx - Medical History Cardio: History of: CAD, Hypertension, Cardiovascular Problems (stent LAD ) Neurology: History of: Dementia, Migraine No history of: Seizures Endocrine: History of: Diabetes Mellitus (IDDM), Dyslipidemia Rheumatology: History of;: Rheumatoid Arthritis Respiratory: History of: Pulmonary Embolism (both lungs jul 2015) Renal: No history of: Renal Failure, Renal Problems Genitourinary: History of: Kidney Stones (laporascopic surgery) Gastrointestinal: History of: Diverticulitis/ Diverticulosis, GI Problems ( diabetic gastroparesis) No history of: Gastrointestinal Bleed, Liver Problems, Pancreatitis Musculoskeletal: History of: Back/Neck Problems, Herniated Disk - Surgical History Cardiac Surgeries: Sugical HX of: Cardiac Catheterization (last cath was 2014 - patent / distal small vessel dz) Neurologic Surgeries: Patient denies: Neurologic Surgery HEENT Surgeries: Surgical HX of: Tonsilectomy & Adenoidectomy Abdominal Surgeries: Surgical HX of: Cholecystectomy (2012), Colonoscopy, EGD Reproductive Surgeries: Surgical HX of;: Hysterectomy Orthopedic Surgeries: Surgical HX of;: Spinal Surgery (Lumbar laminectomy) - Family History Family History: Reports;: Family Cancer (mother), Family Diabetes, Family Heart Disease (mother,sister), Family Hypertension (mother) Denies;: Family Anesthesia Reaction, Family Stroke - Social History Smoking Status: Never smoker Frequency of Alcohol Use: None Type of Drug Use: None Exam Vital Signs: Vital Signs Temperature 98.3 F 02/07/17 10:20 Pulse Rate 99 H 02/07/17 11:45 Respiratory Rate 18 02/07/17 11:45 Blood Pressure 162/91 02/07/17 11:45 O2 Sat by Pulse Oximetry 99 02/07/17 11:45 - General General appearance: alert, in no apparent distress, obese - Head Head exam: Present: atraumatic, normocephalic - Eye Eye exam: Present: normal appearance, PERRL, EOMI - ENT ENT exam: Present: normal oropharynx, mucous membranes moist, TM's normal bilaterally, normal external ear exam - Neck Neck exam: Present: full ROM, trachea midline. Absent: tenderness - Chest Chest inspection: Present: symmetric chest wall rise. Absent: tenderness - Respiratory Respiratory exam: Present: normal lung sounds bilaterally. Absent: respiratory distress - Cardiovascular Cardiovascular exam: Present: regular rate, normal rhythm, normal heart sounds - Abdominal Exam Abdominal exam: Present: soft. Absent: distention, tenderness - Extremities Exam Extremities exam: Present: full ROM. Absent: tenderness - Back Exam Back exam: Present: full ROM. Absent: tenderness - Neurological Exam Neurological exam: Present: alert, oriented X3, CN II-XII intact. Absent: motor sensory deficit - Psychiatric Psychiatric exam: Present: normal affect, normal mood - Skin Skin exam: Present: warm, dry, intact, normal color Course Course Narrative: spoke with hospitalist who will admit pt. Results - Labs CBC & BMP: 02/07/17 09:45 02/07/17 09:45 Lab Results: I have reviewed the patients labs Labs: Laboratory Tests 02/07/17 09:45 WBC 7.2 RBC 3.82 Hgb 12.2 Hct 34.8 L Plt Count 255 Laboratory Tests 02/07/17 02/07/17 09:45 09:45 INR 1.1 PT Patient/Control Mix 11.4 Circ Anticoag PTT 29.3 D Sodium 140 Potassium 3.3 L Chloride 106 Carbon Dioxide 26 BUN 22 H Creatinine 1.90 H Glucose 191 H Globulin 4.0 H Albumin/Globulin Ratio 0.8 L Laboratory Tests 02/07/17 09:45 B-Natriuretic Peptide 20 - EKG EKG results: interpreted by ERMD EKG shows: tachycardia, sinus rhythm - Diagnostic Findings Procedure: Chest x-ray: report reviewed by me (Negative chest) Disposition Clinical Impression: Atypical chest pain Case discussed with: patient, patient's family Disposition: Still a Patient Condition: Stable Time of Disposition: 13:25
[2017-02-07] MEDS ORDERED: MAGNESIUM SULF RIDER 2 GM in PREMIX 1 EACH IV PRN (13:29)
[2017-02-07] MEDS ORDERED: MAGNESIUM SULF RIDER 4 GM in PREMIX 1 EACH IV PRN (13:29)
--- NOTE | 2017-02-07 13:33 | EKG Report ---
Stationary ECG Study [facility] ER Test Date: 02/07/2017 9:39:45 AM Pat Name: ZAYDA DURANT Department: Room: 272 Gender: F Latcher: : 1940 Requested by: Madyson Baltazar Order Number: [id number] Reading MD: COLE WRIGHT Intervals [place] Rate: 106 P: 64 ID: [id number] QRS: -35 QRSD: 116 T: 113 QT: 348 QTc: 410 Interpretive Statements SINUS TACHYCARDIA WITH OCCASIONAL ECTOPIC PREMATURE COMPLEXES ABNORMAL LEFT AXIS DEVIATION CONSISTENT WITH PULMONARY DISEASE INCOMPLETE LEFT BUNDLE BRANCH BLOCK NONSPECIFIC T WAVE ABNORMALITY Electronically Signed On 02-08-17 10:47:04 CDT by COLE WRIGHT [email or web address]
[2017-02-07 13:58] LABS: Risk Ratio 3.12
--- NOTE | 2017-02-07 14:24 | Hospitalist History & Physical ---
Assessment and Plan (1) Hypokalemia Status: Acute Assessment and plan: The patient was hypokalemic at the time of ED presentation. Potassium was noted 3.3. We will start electrolyte protocol, correct deficit, and recheck in a.m. Current Visit: No (2) Chest pain Status: Acute Assessment and plan: Both patient and reports daily chest pain and discomfort. They report that they are generally followed in the outpatient setting by Dr. Mcclendon. The patient has a long extensive medical history which is significant for atypical chest pain, diabetes mellitus, and non-ST elevation myocardial infarction. The patient has required stent placement to the LAD in the past. At the time of admission, patient troponin was noted at 0.016. We will obtain serial troponin levels. Due to the severity of the patient's cardiac history, we will consult cardiology to evaluate and assist during the clinical encounter. In addition, the patient is was noted to have bilateral pulmonary embolisms in 2016. The patient had been placed on anticoagulation agents in the past however , the patient has had documented noncompliance due to an inability to pay for her medication. At the time of ED presentation, the patient's BUN and creatinine was noted at 22 and 1.90. The CTA protocol was not ordered due to the patient's renal insufficiency; however we will order VQ scan and bilateral venous Doppler studies to rule out thrombus formation. Current Visit: No (3) Diabetes mellitus Status: Chronic Assessment and plan: Serum glucose was noted at 191 at the time of ED admission. We will obtain hemoglobin A1c and start Accu-Cheks with sliding scale coverage. Current Visit: No History of Present Illness Chief complaint: chest pain History of present illness: This is a chronically ill 76-year-old female that presented to the ED at [facility] this afternoon for the evaluation of chest pain and shortness of breath. The patient has a medical history significant for non-ST elevated myocardial infarction with PCI to the LAD, hypertension, insulin-dependent diabetes mellitus, hyperlipidemia, peripheral neuropathy, dementia, migraine headache, rheumatoid arthritis, pulmonary embolism, chronic renal insufficiency, renal calculi, diverticulitis, diverticulosis, diabetic gastroparesis, and chronic neck and back pain. Patient has surgical history significant for cardiac catheterization with PCI to the LAD and laparoscopic kidney stone removal. The patient reported the onset of symptoms 1 day prior to presentation. Both patient and report that the patient has chest pain daily. He reported that her chest pain worsened yesterday. In addition, the patient was noted to have bilateral lower extremity edema. The reported that the patient's shortness of breath worsens with exertion however she denies nausea ,vomiting, syncope, and diaphoresis. The patient's pain became more intense prompting them to present to the ED at [facility] for further evaluation. The patient was seen and assessed at the time of ED presentation. The patient was noted to be hypertensive with a blood pressure noted at 162/91. Labs were obtained which were remarkable for hematocrit of 34.8, potassium 3.3, BUN 22, creatinine 1.90, glucose 191, HDL cholesterol 34, troponin 0.016. Chest x-ray was unremarkable for any acute cardiopulmonary processes. After brief discussion with both Dr. Baltazar and Dr. Pagan, the patient will be admitted to the hospitalist service for continuation of care. The patient's home medications have been reviewed and reconciled. CODE STATUS discussed; patient is FULL CODE. Due to the severity of the patient's cardiovascular disease, a cardiology consultation has been requested to evaluate and assist during the clinical encounter. Home Medications Medication Instructions Recorded Confirmed Type Losartan Potassium 100 mg PO DAILY 10/08/14 11/25/16 History NIFEdipine [Nifedipine ER] 90 mg PO DAILY 10/08/14 11/25/16 History Pravastatin [Pravachol] 40 mg PO DAILY 10/08/14 11/25/16 History Insulin Detemir [Levemir] 50 unit SUBCUT BID 01/30/15 11/25/16 History Metoclopramide Tab [Reglan Tab] 10 mg PO QID 07/25/15 11/25/16 History Carvedilol [Coreg] 3.125 mg PO BID 11/24/16 11/25/16 History Aspirin/Calcium Carbonate/Mag 325 mg PO DAILY 11/25/16 11/25/16 History [Aspirin Buffered 325 mg Tab] Apixaban [Eliquis] 5 mg PO BID #30 tablet 11/27/16 Rx hydroCHLOROthiazide 50 mg PO DAILY PRN #0 11/27/16 11/25/16 Rx [Hydrochlorothiazide] Tramadol HCl [Ultram] 50 mg PO Q4-6H #12 tablet 12/10/16 Rx Allergies Allergy/AdvReac Type Severity Reaction Status Date / Time No Known Allergies Allergy Verified 02/07/17 09:38 Medical,Surgical,& Family Hx - Medical History Cardio: History of: CAD, Hypertension, Cardiovascular Problems (stent LAD ) Neurology: History of: Dementia, Migraine No history of: Seizures Endocrine: History of: Diabetes Mellitus (IDDM), Dyslipidemia Rheumatology: History of;: Rheumatoid Arthritis Respiratory: History of: Pulmonary Embolism (both lungs jul 2015) Renal: No history of: Renal Failure, Renal Problems Genitourinary: History of: Kidney Stones (laporascopic surgery) Gastrointestinal: History of: Diverticulitis/ Diverticulosis, GI Problems ( diabetic gastroparesis) No history of: Gastrointestinal Bleed, Liver Problems, Pancreatitis Musculoskeletal: History of: Back/Neck Problems, Herniated Disk - Surgical History Cardiac Surgeries: Sugical HX of: Cardiac Catheterization (last cath was 2014 - patent / distal small vessel dz) Neurologic Surgeries: Patient denies: Neurologic Surgery HEENT Surgeries: Surgical HX of: Tonsilectomy & Adenoidectomy Abdominal Surgeries: Surgical HX of: Cholecystectomy (2012), Colonoscopy, EGD Reproductive Surgeries: Surgical HX of;: Hysterectomy Orthopedic Surgeries: Surgical HX of;: Spinal Surgery (Lumbar laminectomy) - Family History Family History: Reports;: Family Cancer (mother), Family Diabetes, Family Heart Disease (mother,sister), Family Hypertension (mother) Denies;: Family Anesthesia Reaction, Family Stroke - Social History Smoking Status: Never smoker Frequency of Alcohol Use: None Type of Drug Use: None ROS unobtainable: due to mental status Exam - Constitutional Vitals: Period Temp Pulse Resp BP Sys/Barboza Pulse Ox Last 24 Hr 98.3 F-98.3 F 96-106 18-20 107-162/73-91 95-100 General appearance: no acute distress, over weight - Head Head exam: Present: normal inspection, normocephalic, atraumatic - Eye Eye exam: Present: EOMI. Absent: conjunctival injection Pupils: Present: KAUSHIK, normal accommodation - ENT ENT exam: Present: normal exam, normal external ear exam, normal oropharynx - Neck Neck exam: Present: normal inspection. Absent: lymphadenopathy, meningismus, thyromegaly - Respiratory Respiratory exam: Present: clear to auscultation bilaterally. Absent: rales, rhonchi, stridor, wheezes - Cardiovascular Cardiovascular exam: Present: regular rate and rhythm. Absent: carotid bruit, diastolic murmur, gallop, JVD, systolic murmur - GI/Abdominal GI/Abdominal exam: Present: normal bowel sounds, soft - Extremities Exam Extremities exam: Present: normal inspection, normal capillary refill, full ROM. Absent: edema - Back Exam Back exam: Present: normal inspection - Neurological Exam Neurological exam: Present: alert, oriented X3, altered - Psychiatric Psychiatric exam: Present: normal affect - Skin Skin exam: Present: normal color, warm, dry Results - Labs CBC & BMP: 02/07/17 09:45 02/07/17 09:45 Lab Results: I have reviewed the past 24 hour labs
[2017-02-07] MEDS ORDERED: POTASSIUM CHLORIDE RIDER 10 MEQ in PREMIX 1 EACH IV PRN (14:48)
--- NOTE | 2017-02-07 15:29 | Nuclear Medicine Report ---
NM lung scan vent and per Indication: Chest pain. VENTILATION/PERFUSION LUNG SCAN: Planar imaging of the lungs was obtained after the IV administration of 5 mCi technetium 99m labeled MAA, and aerosol administration of 40 mCi technetium 99m labeled DTPA. Comparison: None. Findings: As with the prior examinations, no perfusion defects are present. Impression: Normal VQ scan. No evidence of PE. PROCEDURE INTERPRETED AT [facility] DEPARTMENT OF RADIOLOGY Final Report Signed by: Nirmal Oliveira M.D.
[2017-02-07] MEDS ORDERED: PNEUMOCOCCAL VACCINE (13 VALENT) 0.5 ML SYRINGE IM ONE (15:57)
--- NOTE | 2017-02-07 18:29 | Ultrasound Report ---
US venous doppler LE BI Indication: Bilateral leg edema. BILATERAL LOWER EXTREMITY VENOUS ULTRASOUND Comparison: 11/25/2016 Findings: Graded grayscale compression, color Doppler and pulsed Doppler ultrasound evaluation of the venous structures performed. Normal compressibility, augmentation and color saturation is present within bilateral common femoral, superficial femoral, popliteal and proximal greater saphenous veins. Impression: No evidence of DVT either lower extremity. PROCEDURE INTERPRETED AT [facility] DEPARTMENT OF RADIOLOGY Final Report Signed by: Nirmal Oliveira M.D.
--- NOTE | 2017-02-07 21:20 | Cardiology Consult Note ---
Assessment and Plan (1) Atypical chest pain Status: Acute Assessment and plan: 1. 76-year-old 90 kg BF followed by Dr. Harrison with hypertension, dyslipidemia , known CAD status post LAD stenting in 2010 with weeks of daily atypical chest pain which was worse today lasting 30 minutes with no acute EKG changes or troponin elevation 2. Known CKD, with reported rheumatoid arthritis 3. History of pulmonary embolus in 2016 apparently had some noncompliance issue with anticoagulation; however d-dimer is negative today (venous ultrasound and VQ scan were negative as expected) 4. She has had low risk myocardial scan within the last year and has had multiple heart catheterizations showing no significant disease associated with her chest pain. I would treat her medically and suspect GI etiology; she is to have relief with Maalox but cannot use anymore because of her renal failure. Current Visit: Yes (2) Hypokalemia Status: Acute Current Visit: No (3) Chronic renal failure, stage 3 (moderate) Status: Chronic Current Visit: No History of Present Illness - Consult Narrative History of present illness: Ms. Hill is a 76 year old female who according to her has had daily chest pain for many weeks. She had an episode low substernal which she cannot describe lasting about 30 minutes. She has chronic modest dyspnea on exertion did not change much today. I asked her she was short of breath, and she responded "just a little bit". She is now asymptomatic. It occurs when she is laying down. The worst spell occurred while she was sitting in a chair. It is not changed with inspiration. She does not have trouble swallowing. It occurs while lying in bed at times. Sometimes it occurs while doing activity. CC: Erwin Pagan MD - Home Medications and Allergies Home Medications: Home Medications Medication Instructions Recorded Confirmed Type Losartan Potassium 100 mg PO DAILY 10/08/14 02/07/17 History NIFEdipine [Nifedipine ER] 90 mg PO DAILY 10/08/14 02/07/17 History Pravastatin [Pravachol] 40 mg PO BEDTIME 10/08/14 02/07/17 History Insulin Detemir [Levemir] 35 unit SUBCUT DAILY 01/30/15 02/07/17 History Metoclopramide Tab [Reglan Tab] 10 mg PO QID 07/25/15 02/07/17 History Carvedilol [Coreg] 3.125 mg PO BID 11/24/16 02/07/17 History Apixaban [Eliquis] 5 mg PO BID #30 tablet 11/27/16 02/07/17 Rx hydroCHLOROthiazide 50 mg PO DAILY PRN #0 11/27/16 02/07/17 Rx [Hydrochlorothiazide] Tramadol HCl [Ultram] 50 mg PO Q4-6H #12 tablet 12/10/16 02/07/17 Rx Aspirin [Ecotrin] 81 mg PO DAILY 02/07/17 02/07/17 History Allergies/Adverse Reactions: Allergies Allergy/AdvReac Type Severity Reaction Status Date / Time No Known Allergies Allergy Verified 02/07/17 09:38 Medical,Surgical,& Family Hx - Medical History Cardio: History of: CAD, Hypertension, Cardiovascular Problems (stent LAD ) Neurology: History of: Dementia, Migraine No history of: Seizures Endocrine: History of: Diabetes Mellitus (IDDM), Dyslipidemia Rheumatology: History of;: Rheumatoid Arthritis Respiratory: History of: Pulmonary Embolism (both lungs jul 2015) Renal: No history of: Renal Failure, Renal Problems Genitourinary: History of: Kidney Stones (laporascopic surgery) Gastrointestinal: History of: Diverticulitis/ Diverticulosis, GI Problems ( diabetic gastroparesis) No history of: Gastrointestinal Bleed, Liver Problems, Pancreatitis Musculoskeletal: History of: Back/Neck Problems, Herniated Disk - Surgical History Cardiac Surgeries: Sugical HX of: Cardiac Catheterization (last cath was 2014 - patent / distal small vessel dz) Neurologic Surgeries: Patient denies: Neurologic Surgery HEENT Surgeries: Surgical HX of: Tonsilectomy & Adenoidectomy Abdominal Surgeries: Surgical HX of: Cholecystectomy (2012), Colonoscopy, EGD Reproductive Surgeries: Surgical HX of;: Hysterectomy Orthopedic Surgeries: Surgical HX of;: Spinal Surgery (Lumbar laminectomy) - Family History Family History: Reports;: Family Cancer (mother), Family Diabetes, Family Heart Disease (mother,sister), Family Hypertension (mother) Denies;: Family Anesthesia Reaction, Family Stroke - Social History Smoking Status: Never smoker Frequency of Alcohol Use: None Type of Drug Use: None Physical Examination Vital Signs Temp Pulse Resp BP Pulse Ox 98.3 F 104 H 20 107/73 99 02/07/17 09:35 02/07/17 09:35 02/07/17 09:35 02/07/17 09:35 02/07/17 09:35 General: Present: Appears Well, No Apparent Distress HEENT: Present: Normocephaly Neck: Present: Supple Neck Cardiac: Present: Reg Rate and Rhythm. Absent: Diastolic Murmur Lungs: Present: Scattered Rhonchi. Absent: Bibasilar Rales, Wheezes Abdomen: Present: Soft, Non-Tender Extremities: Absent: Edema Result/EKG - Labs CBC & BMP: 02/07/17 09:45 02/07/17 09:45 Labs: Laboratory Results - last 24 hr 02/07/17 02/07/17 02/07/17 09:45 09:45 09:45 WBC 7.2 RBC 3.82 Hgb 12.2 Hct 34.8 L MCV 91.1 MCH 32 MCHC 35.1 RDW 12.5 Plt Count 255 MPV 10.4 Neut % (Auto) 58.3 Lymph % (Auto) 28.6 [place] % (Auto) 9.3 Eos % (Auto) 2.8 Baso % (Auto) 0.7 Neut # (Auto) 4.2 Lymph # (Auto) 2.1 [place] # (Auto) 0.7 Eos # (Auto) 0.2 Baso # (Auto) 0.1 Immature Gran % 0.3 Nucleated RBC % 0.0 Immature Gran # 0.02 Nucleated RBCs # 0.00 Immature Plt Fraction 0.0 INR 1.1 PT Patient/Control Mix 11.4 D-Dimer, Quantitative Circ Anticoag PTT 29.3 D Sodium 140 Potassium 3.3 L Chloride 106 Carbon Dioxide 26 Anion Gap 11.3 BUN 22 H Creatinine 1.90 H GFR Calculation 36 BUN/Creatinine Ratio 11.00 Glucose 191 H Calculated Osmolality 286.4 Calcium 9.7 Total Bilirubin 0.60 AST 16 ALT 16 Alkaline Phosphatase 68 Total Creatine Kinase 111 CK-MB (CK-2) < 1.0 Troponin I 0.016 B-Natriuretic Peptide Total Protein 7.5 Albumin 3.5 Globulin 4.0 H Albumin/Globulin Ratio 0.8 L Triglycerides Cholesterol LDL Cholesterol VLDL Cholesterol HDL Cholesterol Heart Disease Risk Ratio 02/07/17 02/07/17 02/07/17 09:45 09:45 09:45 WBC RBC Hgb Hct MCV MCH MCHC RDW Plt Count MPV Neut % (Auto) Lymph % (Auto) [place] % (Auto) Eos % (Auto) Baso % (Auto) Neut # (Auto) Lymph # (Auto) [place] # (Auto) Eos # (Auto) Baso # (Auto) Immature Gran % Nucleated RBC % Immature Gran # Nucleated RBCs # Immature Plt Fraction INR PT Patient/Control Mix D-Dimer, Quantitative <= 0.5 Circ Anticoag PTT Sodium Potassium Chloride Carbon Dioxide Anion Gap BUN Creatinine GFR Calculation BUN/Creatinine Ratio Glucose Calculated Osmolality Calcium Total Bilirubin AST ALT Alkaline Phosphatase Total Creatine Kinase CK-MB (CK-2) Troponin I B-Natriuretic Peptide 20 Total Protein Albumin Globulin Albumin/Globulin Ratio Triglycerides 115 Cholesterol 106 LDL Cholesterol 62.0 VLDL Cholesterol 23.0 HDL Cholesterol 34 L Heart Disease Risk Ratio 3.12 02/07/17 02/07/17 15:25 18:38 WBC RBC Hgb Hct MCV MCH MCHC RDW Plt Count MPV Neut % (Auto) Lymph % (Auto) [place] % (Auto) Eos % (Auto) Baso % (Auto) Neut # (Auto) Lymph # (Auto) [place] # (Auto) Eos # (Auto) Baso # (Auto) Immature Gran % Nucleated RBC % Immature Gran # Nucleated RBCs # Immature Plt Fraction INR PT Patient/Control Mix D-Dimer, Quantitative Circ Anticoag PTT Sodium Potassium Chloride Carbon Dioxide Anion Gap BUN Creatinine GFR Calculation BUN/Creatinine Ratio Glucose Calculated Osmolality Calcium Total Bilirubin AST ALT Alkaline Phosphatase Total Creatine Kinase CK-MB (CK-2) Troponin I 0.017 < 0.015 B-Natriuretic Peptide Total Protein Albumin Globulin Albumin/Globulin Ratio Triglycerides Cholesterol LDL Cholesterol VLDL Cholesterol HDL Cholesterol Heart Disease Risk Ratio
[2017-02-07] MEDS: INSULIN GLARGINE 100 UNIT/ML SUBCUT SCH (21:23)
[2017-02-07] MEDS: APIXABAN 5 MG TABLET PO SCH (21:23)
[2017-02-07] MEDS: CARVEDILOL 3.125 MG TABLET PO SCH (21:23)
[2017-02-07] MEDS: PANTOPRAZOLE 20 MG TABLET PO SCH (21:29)
[2017-02-08 07:46] LABS: Basophils % 0.5 % (0.0-0.8); Eosinophils # 0.1 10*3/uL (0.0-0.87); Eosinophils % 1.7 % (0.00-10.9); Hematocrit 33.2 VOL% (35.7-47.0); Hemoglobin 11.6 GM/DL (12.0-16.0); Immature Granulocytes % 0.3 %; Immature Granulocytes Absolute 0.02 #; Lymphocytes # 1.9 10*3/uL (1.4-4.0); Lymphocytes % 29.8 % (21.3-54.2); Mean Corpuscular HGB Conc 34.9 GM/DL (32-36); Mean Corpuscular Hemoglobin 32 PG (27-34); Mean Corpuscular Volume 92.5 FL (87-102); Mean Platelet Volume 10.2 FL (9.6-12.0); Monocytes # 0.7 10*3/uL (0.11-0.8); Monocytes % 10.7 % (1.7-12.7); Neutrophils # 3.7 10*3/uL (1.4-7.4); Platelet Count 217 T/CUMM (130-400); Red Blood Count 3.59 MC/CUMM (3.8-5.5); Red Cell Distribution Width 12.3 % (9.3-17.3); White Blood Count 6.5 T/CUMM (4-12)
[2017-02-08 08:16] LABS: Albumin 3.1 G/DL (3.4-5.0); Bilirubin,Total 0.7 MG/DL (0.2-1.0); Calcium 9.5 MG/DL (8.5-10.1); Osmolality,Calculated 289.3 MOS/KG (273-304); Total Protein 6.7 G/DL (6.4-8.3)
[2017-02-08] MEDS: APIXABAN 5 MG TABLET PO SCH (08:40)
[2017-02-08] MEDS: INSULIN GLARGINE 100 UNIT/ML SUBCUT SCH (08:40)
[2017-02-08] MEDS: CARVEDILOL 3.125 MG TABLET PO SCH (08:40)
[2017-02-08] MEDS: PANTOPRAZOLE 20 MG TABLET PO SCH (08:41)
[2017-02-08] MEDS ORDERED: PRAVASTATIN 40 MG TABLET PO SCH (09:00)
--- NOTE | 2017-02-08 09:14 | XRay Report ---
XR chest 1V portable Indication: Chest pain. Chest one view: Comparison yesterday. Heart size remains normal. Mediastinal contours unremarkable. No new infiltrates are identified. Impression: No change. PROCEDURE INTERPRETED AT [facility] DEPARTMENT OF RADIOLOGY Final Report Signed by: Nirmal Oliveira M.D.
--- NOTE | 2017-02-08 09:46 | Cardiology Progress Note ---
Assessment and Plan (1) Atypical chest pain Status: Acute Assessment and plan: 1. 76-year-old 90 kg BF followed by Dr. Harrison with hypertension, dyslipidemia , known CAD status post LAD stenting in 2010 with weeks of daily atypical chest pain which was worse today lasting 30 minutes with no acute EKG changes or troponin elevation 2. Known CKD, with reported rheumatoid arthritis 3. History of pulmonary embolus in 2016 apparently had some noncompliance issue with anticoagulation; however d-dimer is negative today (venous ultrasound and VQ scan were negative as expected) 4. She has had low risk myocardial scan within the last year and has had multiple heart catheterizations showing no significant disease associated with her chest pain. I would treat her medically and suspect GI etiology; she is to have relief with Maalox but cannot use anymore because of her renal failure. February 08, 2017: 1. Ms. Hill is atypical chest pain is now resolved, do not suspect ACS 2. Will continue PPI for suspected GERD 3. Fever 1 during the night to 100.7 with cough "for a while"; possible bronchitisdefer to primary service. 4. CKD is stable, as her vital signs 5. She can be discharged from a cardiac standpoint; would recommend follow-up with Dr. Hair in the next 2 weeks. Current Visit: Yes (2) Hypokalemia Status: Acute Current Visit: No (3) Chronic renal failure, stage 3 (moderate) Status: Chronic Current Visit: No Cardiology - PN: Subj Interval history: Ms. Hill has not had any more chest discomfort but is not short of breath. She denies dysuria but says she has been having cough for "a little while". I assess given she had an episode of fever during the night. She is not very talkative this morning but is alert and oriented no acute distress. Her seems to be interested in discharge. Exam (Progress Note) - Constitutional Vitals: Period Temp Pulse Resp BP Sys/Barboza Pulse Ox Last 24 Hr 97.7 F-100.7 F 96-108 16-20 107-162/58-91 94-100 General appearance: no acute distress, over weight - Head Head exam: Present: normal inspection, normocephalic, atraumatic - Neck Neck exam: Present: normal inspection - Respiratory Respiratory exam: Present: clear to auscultation bilaterally. Absent: stridor, wheezes - Cardiovascular Cardiovascular exam: Present: regular rate and rhythm. Absent: diastolic murmur , rubs - GI/Abdominal GI/Abdominal exam: Present: soft. Absent: tenderness - Extremities Exam Extremities exam: Absent: edema (Trace) Result/EKG - Labs CBC & BMP: 02/08/17 07:39 02/08/17 07:39 Labs: Laboratory Results - last 24 hr 02/07/17 02/07/17 02/07/17 09:45 09:45 09:45 WBC 7.2 RBC 3.82 Hgb 12.2 Hct 34.8 L MCV 91.1 MCH 32 MCHC 35.1 RDW 12.5 Plt Count 255 MPV 10.4 Neut % (Auto) 58.3 Lymph % (Auto) 28.6 [place] % (Auto) 9.3 Eos % (Auto) 2.8 Baso % (Auto) 0.7 Neut # (Auto) 4.2 Lymph # (Auto) 2.1 [place] # (Auto) 0.7 Eos # (Auto) 0.2 Baso # (Auto) 0.1 Immature Gran % 0.3 Nucleated RBC % 0.0 Immature Gran # 0.02 Nucleated RBCs # 0.00 Immature Plt Fraction 0.0 INR 1.1 PT Patient/Control Mix 11.4 D-Dimer, Quantitative Circ Anticoag PTT 29.3 D Sodium 140 Potassium 3.3 L Chloride 106 Carbon Dioxide 26 Anion Gap 11.3 BUN 22 H Creatinine 1.90 H GFR Calculation 36 BUN/Creatinine Ratio 11.00 Glucose 191 H POC Glucose Calculated Osmolality 286.4 Calcium 9.7 Total Bilirubin 0.60 AST 16 ALT 16 Alkaline Phosphatase 68 Total Creatine Kinase 111 CK-MB (CK-2) < 1.0 Troponin I 0.016 B-Natriuretic Peptide Total Protein 7.5 Albumin 3.5 Globulin 4.0 H Albumin/Globulin Ratio 0.8 L Triglycerides Cholesterol LDL Cholesterol VLDL Cholesterol HDL Cholesterol Heart Disease Risk Ratio 02/07/17 02/07/17 02/07/17 09:45 09:45 09:45 WBC RBC Hgb Hct MCV MCH MCHC RDW Plt Count MPV Neut % (Auto) Lymph % (Auto) [place] % (Auto) Eos % (Auto) Baso % (Auto) Neut # (Auto) Lymph # (Auto) [place] # (Auto) Eos # (Auto) Baso # (Auto) Immature Gran % Nucleated RBC % Immature Gran # Nucleated RBCs # Immature Plt Fraction INR PT Patient/Control Mix D-Dimer, Quantitative <= 0.5 Circ Anticoag PTT Sodium Potassium Chloride Carbon Dioxide Anion Gap BUN Creatinine GFR Calculation BUN/Creatinine Ratio Glucose POC Glucose Calculated Osmolality Calcium Total Bilirubin AST ALT Alkaline Phosphatase Total Creatine Kinase CK-MB (CK-2) Troponin I B-Natriuretic Peptide 20 Total Protein Albumin Globulin Albumin/Globulin Ratio Triglycerides 115 Cholesterol 106 LDL Cholesterol 62.0 VLDL Cholesterol 23.0 HDL Cholesterol 34 L Heart Disease Risk Ratio 3.12 02/07/17 02/07/17 02/07/17 15:25 18:38 20:03 WBC RBC Hgb Hct MCV MCH MCHC RDW Plt Count MPV Neut % (Auto) Lymph % (Auto) [place] % (Auto) Eos % (Auto) Baso % (Auto) Neut # (Auto) Lymph # (Auto) [place] # (Auto) Eos # (Auto) Baso # (Auto) Immature Gran % Nucleated RBC % Immature Gran # Nucleated RBCs # Immature Plt Fraction INR PT Patient/Control Mix D-Dimer, Quantitative Circ Anticoag PTT Sodium Potassium Chloride Carbon Dioxide Anion Gap BUN Creatinine GFR Calculation BUN/Creatinine Ratio Glucose POC Glucose 239 H Calculated Osmolality Calcium Total Bilirubin AST ALT Alkaline Phosphatase Total Creatine Kinase CK-MB (CK-2) Troponin I 0.017 < 0.015 B-Natriuretic Peptide Total Protein Albumin Globulin Albumin/Globulin Ratio Triglycerides Cholesterol LDL Cholesterol VLDL Cholesterol HDL Cholesterol Heart Disease Risk Ratio 02/07/17 02/08/17 02/08/17 21:18 07:39 07:39 WBC 6.5 RBC 3.59 L Hgb 11.6 L Hct 33.2 L MCV 92.5 MCH 32 MCHC 34.9 RDW 12.3 Plt Count 217 MPV 10.2 Neut % (Auto) 57.0 Lymph % (Auto) 29.8 [place] % (Auto) 10.7 Eos % (Auto) 1.7 Baso % (Auto) 0.5 Neut # (Auto) 3.7 Lymph # (Auto) 1.9 [place] # (Auto) 0.7 Eos # (Auto) 0.1 Baso # (Auto) 0.0 Immature Gran % 0.3 Nucleated RBC % 0.0 Immature Gran # 0.02 Nucleated RBCs # 0.00 Immature Plt Fraction 0.0 INR PT Patient/Control Mix D-Dimer, Quantitative Circ Anticoag PTT Sodium 141 Potassium 4.0 Chloride 107 Carbon Dioxide 27 Anion Gap 11.0 BUN 20 H Creatinine 1.80 H GFR Calculation 38 BUN/Creatinine Ratio 11.00 Glucose 205 H POC Glucose Calculated Osmolality 289.3 Calcium 9.5 Total Bilirubin 0.70 AST 15 ALT 15 Alkaline Phosphatase 60 Total Creatine Kinase CK-MB (CK-2) Troponin I 0.019 B-Natriuretic Peptide Total Protein 6.7 Albumin 3.1 L Globulin 3.6 H Albumin/Globulin Ratio 0.8 L Triglycerides Cholesterol LDL Cholesterol VLDL Cholesterol HDL Cholesterol Heart Disease Risk Ratio 02/08/17 08:14 WBC RBC Hgb Hct MCV MCH MCHC RDW Plt Count MPV Neut % (Auto) Lymph % (Auto) [place] % (Auto) Eos % (Auto) Baso % (Auto) Neut # (Auto) Lymph # (Auto) [place] # (Auto) Eos # (Auto) Baso # (Auto) Immature Gran % Nucleated RBC % Immature Gran # Nucleated RBCs # Immature Plt Fraction INR PT Patient/Control Mix D-Dimer, Quantitative Circ Anticoag PTT Sodium Potassium Chloride Carbon Dioxide Anion Gap BUN Creatinine GFR Calculation BUN/Creatinine Ratio Glucose POC Glucose 221 H Calculated Osmolality Calcium Total Bilirubin AST ALT Alkaline Phosphatase Total Creatine Kinase CK-MB (CK-2) Troponin I B-Natriuretic Peptide Total Protein Albumin Globulin Albumin/Globulin Ratio Triglycerides Cholesterol LDL Cholesterol VLDL Cholesterol HDL Cholesterol Heart Disease Risk Ratio Specialty Discharge - Follow Up or Referrals Follow up with: Allison Harrison DO [Physician] - 2 Weeks (With EKG)
--- NOTE | 2017-02-08 10:53 | EKG Report ---
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
[2017-02-08] MEDS ORDERED: DOXYCYCLINE HYCLATE 100 MG CAPSULE PO SCH (12:00)
--- NOTE | 2017-02-08 12:01 | Discharge Summary ---
Hospital Course - Hospital Course Hospital Course: 76-year-old female that presented to the ED at [facility] for the evaluation of chest pain and shortness of breath. The patient has a medical history significant for non-ST elevated myocardial infarction with PCI to the LAD, hypertension, insulin-dependent diabetes mellitus, hyperlipidemia. She was admitted and ruled out for AL by cardiac enzymes. She had a venous Doppler of the lower extremities as well as VQ scan of the lung. There was no evidence of DVT or PE based on these tests. She was seen by cardiology and her chest pain was deemed atypical. She had extensive cardiac workup in the past and is well known to cardiology. She did have some fever and cough and was diagnosed with acute bronchitis, checks x-ray did not show pneumonia. It was treated with doxycycline and will continue as an outpatient. She will continue to follow with her primary physician Dr. Hair. - Time spent with patient Time with patient DS: Less than 30 minutes Diagnosis - Discharge Diagnosis (1) Chest pain Status: Resolved Specialty Discharge - Follow Up or Referrals Follow up with: Allison Harrison DO [Physician] - 2 Weeks (With EKG) Discharge Plan - Discharge Data Condition at Discharge: Stable Discharge Diet: advance to your usual diet Activity: resume usual activities as tolerated Hygiene: no restrictions Weight Bearing at Discharge: full weight bearing Driving: no restrictions Contact your physician if you experience:: fever over 101, Nausea/Vomiting - Discharge Medications New Pantoprazole Tab [Protonix Tab] 20 mg PO DAILY #30 tablet Doxycycline Hyclate Cap [Vibramycin Cap] 100 mg PO BID #14 capsule Continue Pravastatin [Pravachol] 40 mg PO BEDTIME NIFEdipine [Nifedipine ER] 90 mg PO DAILY Losartan Potassium 100 mg PO DAILY Insulin Detemir [Levemir] 35 unit SUBCUT DAILY Metoclopramide Tab [Reglan Tab] 10 mg PO QID Apixaban [Eliquis] 5 mg PO BID #30 tablet hydroCHLOROthiazide [Hydrochlorothiazide] 50 mg PO DAILY PRN #0 PRN Reason: Edema Tramadol HCl [Ultram] 50 mg PO Q4-6H #12 tablet Aspirin [Ecotrin] 81 mg PO DAILY Carvedilol [Coreg] 3.125 mg PO BID - Follow Up or Referral Follow Up: Allison Harrison DO [Physician] - 2 Weeks (With EKG) - Forms/Instructions Exam - Constitutional Vitals: Period Temp Pulse Resp BP Sys/Barboza Pulse Ox Last 24 Hr 97.7 F-100.7 F 97-108 16-20 116-144/58-80 94-99 Exam: General: No Acute Distress HEENT: Normocephalic, atraumatic, Extra ocular movements intact Neck: Supple, No JVD Chest: Clear to auscultation B/L CV: S1 + S2 audible without murmur, gallop or rub Abd: soft, NT, Non-distended, BS + Ext: No edema Skin: No purpura, bruising or rash Rheumatologic: No Joint deformities Neurologic: Strength 5/5 all extremities, no gross sensory deficits Discharge Results Labs on day of discharge: Labs from last 24 hours 02/08/17 02/08/17 02/08/17 08:14 07:39 07:39 WBC 6.5 RBC 3.59 L Hgb 11.6 L Hct 33.2 L MCV 92.5 MCH 32 MCHC 34.9 RDW 12.3 Plt Count 217 MPV 10.2 Neut % (Auto) 57.0 Lymph % (Auto) 29.8 [place] % (Auto) 10.7 Eos % (Auto) 1.7 Baso % (Auto) 0.5 Neut # (Auto) 3.7 Lymph # (Auto) 1.9 [place] # (Auto) 0.7 Eos # (Auto) 0.1 Baso # (Auto) 0.0 Immature Gran % 0.3 Nucleated RBC % 0.0 Immature Gran # 0.02 Nucleated RBCs # 0.00 Immature Plt Fraction 0.0 D-Dimer, Quantitative Sodium 141 Potassium 4.0 Chloride 107 Carbon Dioxide 27 Anion Gap 11.0 BUN 20 H Creatinine 1.80 H GFR Calculation 38 BUN/Creatinine Ratio 11.00 Glucose 205 H POC Glucose 221 H Calculated Osmolality 289.3 Calcium 9.5 Total Bilirubin 0.70 AST 15 ALT 15 Alkaline Phosphatase 60 Troponin I Total Protein 6.7 Albumin 3.1 L Globulin 3.6 H Albumin/Globulin Ratio 0.8 L Triglycerides Cholesterol LDL Cholesterol VLDL Cholesterol HDL Cholesterol Heart Disease Risk Ratio 02/07/17 02/07/17 02/07/17 21:18 20:03 18:38 WBC RBC Hgb Hct MCV MCH MCHC RDW Plt Count MPV Neut % (Auto) Lymph % (Auto) [place] % (Auto) Eos % (Auto) Baso % (Auto) Neut # (Auto) Lymph # (Auto) [place] # (Auto) Eos # (Auto) Baso # (Auto) Immature Gran % Nucleated RBC % Immature Gran # Nucleated RBCs # Immature Plt Fraction D-Dimer, Quantitative Sodium Potassium Chloride Carbon Dioxide Anion Gap BUN Creatinine GFR Calculation BUN/Creatinine Ratio Glucose POC Glucose 239 H Calculated Osmolality Calcium Total Bilirubin AST ALT Alkaline Phosphatase Troponin I 0.019 < 0.015 Total Protein Albumin Globulin Albumin/Globulin Ratio Triglycerides Cholesterol LDL Cholesterol VLDL Cholesterol HDL Cholesterol Heart Disease Risk Ratio 02/07/17 02/07/17 02/07/17 15:25 09:45 09:45 WBC RBC Hgb Hct MCV MCH MCHC RDW Plt Count MPV Neut % (Auto) Lymph % (Auto) [place] % (Auto) Eos % (Auto) Baso % (Auto) Neut # (Auto) Lymph # (Auto) [place] # (Auto) Eos # (Auto) Baso # (Auto) Immature Gran % Nucleated RBC % Immature Gran # Nucleated RBCs # Immature Plt Fraction D-Dimer, Quantitative <= 0.5 Sodium Potassium Chloride Carbon Dioxide Anion Gap BUN Creatinine GFR Calculation BUN/Creatinine Ratio Glucose POC Glucose Calculated Osmolality Calcium Total Bilirubin AST ALT Alkaline Phosphatase Troponin I 0.017 Total Protein Albumin Globulin Albumin/Globulin Ratio Triglycerides 115 Cholesterol 106 LDL Cholesterol 62.0 VLDL Cholesterol 23.0 HDL Cholesterol 34 L Heart Disease Risk Ratio 3.12 DS: Provider Date of admission: 02/07/17 13:13 Primary care physician: . No PCP Attending physician on admission: Erwin Pagan MD Consults: 02/07/17 15:51 Consult to Physician [CONS] Routine Comment: Consulting Provider: Loy Stein When should Consulting Provider be notified: Now Person Notified: Dr Stein Date Notified: 02/07/17 Time Notified: 17:07 Discharging clinician: Erwin Pagan MD
[2017-02-08 12:29] VITALS: BP 103/59
== END 2017-02-08 13:30 | disposition home or self-care (01) | DRG 313 ==
LOC: N.ED 09:33 → N.EDINP 13:13 → N.TELES 15:50
PROVIDERS: ADMIT Hospitalist; ATTEND Hospitalist

== ENCOUNTER 2017-02-24 13:48 | Observation (INO) ==
[2017-02-24] MEDS ORDERED: DEXTROSE 50% 25 GM/50 ML SYRINGE IV PRN (13:54)
[2017-02-24] MEDS ORDERED: diphenhydrAMINE CAP 25 MG CAPSULE PO ONE (13:54)
[2017-02-24] MEDS ORDERED: hydrALAZINE 20 MG/1 ML VIAL IV PRN (13:54)
[2017-02-24] MEDS ORDERED: NITROGLYCERIN SL 0.4 MG TABLET SL PRN (13:54)
[2017-02-24] MEDS ORDERED: ZALEPLON 5 MG CAPSULE PO PRN (13:54)
[2017-02-24] MEDS ORDERED: DIAZEPAM 5 MG TABLET PO ONE (13:54)
[2017-02-24] MEDS ORDERED: GLUCAGON 1 MG VIAL IM PRN (13:54)
--- NOTE | 2017-02-24 14:01 | Event Note ---
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 Relieved in the office with NTG. Extreme anxiety. Offer LHC on 02/26/2017 but she wishes to be admitted for LHC on 02/25/17 because of worsening chest pain that has been going on for 2 weeks and one previous hospitalization. See CIS note from clinic today. Orders in EHR.
--- NOTE | 2017-02-24 15:05 | EKG Report ---
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
[2017-02-24] MEDS ORDERED: KETOROLAC 15 MG/1 ML VIAL IM ONE (15:54)
--- NOTE | 2017-02-24 16:18 | XRay Report ---
2 view chest February 24, 2017 at 1608 hours Indication: Shortness of breath Comparison: February 08, 2017 Findings: Cardiomediastinal contours are normal. Lungs are clear bilaterally. No acute osseous abnormalities. Visualized upper abdomen demonstrates no acute pathology. Impression: No acute cardiopulmonary findings PROCEDURE INTERPRETED AT [facility] DEPARTMENT OF RADIOLOGY Final Report Signed by: Michael Lipscomb
[2017-02-24] MEDS: traMADol 50 MG TABLET PO SCH ×2 (16:33→20:54)
[2017-02-24] MEDS: ACETAMINOPHEN 325 MG TABLET PO SCH ×2 (16:33→20:54)
[2017-02-24] MEDS: METOCLOPRAMIDE 10 MG TABLET PO SCH ×2 (16:34→20:54)
[2017-02-24] MEDS: GABAPENTIN 100 MG CAPSULE PO SCH ×2 (16:34→20:54)
--- NOTE | 2017-02-24 16:36 | Event Note ---
Patient continues to complain of chest pain this afternoon. Upon examination, chest pain she was feeling this afternoon was reproducible to palpation in the mid and left chest area. She is uncertain if this is the same type of chest discomfort she was having earlier today. However, given the reproducibility of this particular chest pain this afternoon, she is being given Toradol 15 mg IV ( creatinine is 1.8 therefore low dose), Acetaminophen 325 mg orally now and twice daily, Neurontin 100 mg orally now and 3 times daily, Tramadol 50 mg orally now and twice daily. In preparation for possible upcoming cardiac catheterization tomorrow, IV Fluids at 100ml/hour has been ordered. NPO after midnight. Dr. Merino was seen and evaluated patient this afternoon for possible cardiac catheterization in the morning.
[2017-02-24] MEDS ORDERED: MAGNESIUM SULF RIDER 2 GM in PREMIX 1 EACH IV PRN ×3 (16:38→19:30)
[2017-02-24] MEDS: SODIUM ACETATE 50 MEQ in SODIUM CHLORIDE 0.45% 1,000 ML IV SCH (16:44)
[2017-02-24] MEDS ORDERED: POTASSIUM CHLORIDE RIDER 10 MEQ in PREMIX 1 EACH IV PRN ×2 (19:27→19:30)
--- NOTE | 2017-02-24 19:37 | History and Physical Update ---
Sedation H&P Update - History and Physical H&P was reviewed, the patient examined and there: are no changes in the patients condition since last H&P was completed. - Dictation Physical: refer to scanned H&P - Physical Exam Mental Status: alert and oriented Heart: regular rate and rhythm Lung: clear to auscultation Abdomen: within normal limits Vitals: within normal limits - Sedation Plan for Sedation: minimal Patient Consent: Procedure disscussed with patient and patinet has consented., Risks and benefits were discussed with patient,including infection,, bleeding, injury to surrounding structures, seizure, temporary nerve, Patient understands and accepts potential risks/benefits and agrees to, proceed. (Left heart cath and possible PTCA or stent were discussed with the patient. The risk of the procedure include but are not limited to a small risk of injury to the vessel, abnormal heart rhythm, stroke, heart attack, need for emergent surgery, contrast reaction, restenosis, infection, or . The patient voices understanding, agrees with the plan, and desires to proceed with the heart catheterization.) ASA Class: II Airway Assessment: Class II: Soft palate, uvula, fauces visible
[2017-02-24] MEDS ORDERED: ASPIRIN CHEW 81 MG TABLET PO ONE (19:55)
[2017-02-24] MEDS ORDERED: ENOXAPARIN 80 MG/0.8 ML SYRINGE SUBCUT ONE (20:00)
[2017-02-24] MEDS: PANTOPRAZOLE 40 MG TABLET PO SCH (20:54)
[2017-02-24] MEDS: PRAVASTATIN 40 MG TABLET PO SCH (20:54)
[2017-02-24] MEDS: CARVEDILOL 3.125 MG TABLET PO SCH (20:54)
[2017-02-24 22:01] LABS: Alanine Aminotransferase 12 U/L (13-56); Albumin 2.8 G/DL (3.4-5.0); Alkaline Phosphatase 62 U/L (45-117); Aspartate Amino Transferase 9 U/L (0-37); Bilirubin,Total < 0.39 MG/DL (0.2-1.0); Blood Urea Nitrogen 21 MG/DL (7-18); Calcium 9.2 MG/DL (8.5-10.1); Glucose 267 MG/DL (74-106); Osmolality,Calculated 290.4 MOS/KG (273-304); Potassium 3.1 MMOL/L (3.5-5.1); Sodium 140 MMOL/L (136-145); Total Protein 6.1 G/DL (6.4-8.3)
[2017-02-24] MEDS: SODIUM CHLORIDE 0.9% 1,000 ML IV SCH (22:42)
[2017-02-24 22:55] LABS: Basophils % 0.7 % (0.0-0.8); Eosinophils # 0.4 10*3/uL (0.0-0.87); Eosinophils % 6.7 % (0.00-10.9); Hemoglobin 10.9 GM/DL (12.0-16.0); Immature Granulocytes % 0.2 %; Immature Granulocytes Absolute 0.01 #; Lymphocytes # 2.2 10*3/uL (1.4-4.0); Lymphocytes % 36.3 % (21.3-54.2); Mean Corpuscular HGB Conc 35.2 GM/DL (32-36); Mean Corpuscular Hemoglobin 32 PG (27-34); Mean Corpuscular Volume 90.4 FL (87-102); Mean Platelet Volume 10.9 FL (9.6-12.0); Monocytes # 0.5 10*3/uL (0.11-0.8); Monocytes % 8.1 % (1.7-12.7); Platelet Count 213 T/CUMM (130-400); Red Blood Count 3.43 MC/CUMM (3.8-5.5); Red Cell Distribution Width 12.3 % (9.3-17.3); White Blood Count 6.2 T/CUMM (4-12)
[2017-02-25] MEDS: SODIUM ACETATE 50 MEQ in SODIUM CHLORIDE 0.45% 1,000 ML IV SCH (00:11)
[2017-02-25] MEDS: SODIUM CHLORIDE 0.9% 1,000 ML IV SCH ×5 (02:53→21:58)
[2017-02-25] MEDS: POTASSIUM CHLORIDE RIDER 10 MEQ in PREMIX 1 EACH IV PRN ×2 (06:18→12:02)
[2017-02-25] MEDS ORDERED: diphenhydrAMINE CAP 25 MG CAPSULE PO ONE (06:30)
[2017-02-25] MEDS ORDERED: ISOSORBIDE MONONITRATE 30 MG TABLET PO ONE (06:30)
[2017-02-25] MEDS ORDERED: ASPIRIN CHEW 81 MG TABLET PO ONE (06:30)
[2017-02-25] MEDS ORDERED: DIAZEPAM 5 MG TABLET PO ONE (06:30)
[2017-02-25] MEDS ORDERED: LOSARTAN 50 MG TABLET PO ONE (06:30)
[2017-02-25 06:41] LABS: Calcium 8.7 MG/DL (8.5-10.1); Osmolality,Calculated 288.3 MOS/KG (273-304); Potassium 2.9 MMOL/L (3.5-5.1)
[2017-02-25] MEDS: GABAPENTIN 100 MG CAPSULE PO SCH ×4 (06:44→22:00)
[2017-02-25] MEDS: ASPIRIN EC 81 MG TABLET PO SCH (06:44)
[2017-02-25] MEDS: LOSARTAN 50 MG TABLET PO SCH (06:44)
[2017-02-25] MEDS: ISOSORBIDE MONONITRATE 30 MG TABLET PO SCH (06:45)
[2017-02-25] MEDS: CARVEDILOL 3.125 MG TABLET PO SCH ×3 (06:45→22:03)
[2017-02-25] MEDS: PANTOPRAZOLE 40 MG TABLET PO SCH ×3 (06:45→22:02)
[2017-02-25] MEDS: PRAVASTATIN 40 MG TABLET PO SCH ×2 (06:45→22:02)
[2017-02-25] MEDS: METOCLOPRAMIDE 10 MG TABLET PO SCH ×4 (06:45→22:02)
[2017-02-25] MEDS ORDERED: LIDOCAINE 1% 20 ML VIAL ONE (06:57)
[2017-02-25] MEDS ORDERED: MIDAZOLAM 2 MG/2 ML VIAL ONE (07:19)
[2017-02-25] MEDS ORDERED: MEPERIDINE 25 MG/1 ML VIAL ONE (07:19)
--- NOTE | 2017-02-25 08:23 | Cardiology Operative Report ---
Date of Procedure:: 02/25/17 Post-op diagnosis: same (77-year-old woman with known CAD. She has had prior coronary stent. She presents with severe chest pain , progressive angina and for diagnostic catheterization and possible intervention.) Procedure: Date of procedure: 02/25/17 Procedure Preformed: Left heart cath Coronary angiography--via cardiac swing Left ventriculography Angiogram of the right femoral artery Angio-Seal of the right femoral artery-successful Surgeon / Physician: Duong Merino Engineer Of System Development: Edy Hayes Post-op diagnosis: same (77-year-old woman with known CAD. She has had prior coronary stent. She presents with severe chest pain , progressive angina and for diagnostic catheterization and possible intervention.) procedure: The patient was prepped and draped in usual manner. Entered the right femoral artery via the Seldinger technique. I used a sheath and then used a JL4 and engaged left coronary. Then did cardiac swing to assess off the vessels and left coronary artery at once. I then exchanged for a JR4. 2 views of the right coronary were taken, using a modified swing technique. I then exchanged for an angled pigtail. I crossed the valve. Left ventricular end-diastolic pressures measured. Left ventriculography was done. Left ventricle pullback was done. The catheters were then removed from the patient. Angiogram of the right femoral artery was done either from the follow-through from the LV gram or a separate injection in the right femoral artery. Angio-Seal was done and it was successful. Please see the cath data sheets for the details of catheters used. Complications: None Hemodynamic data: LVEDP was 20 mmHg. Angiographic data: The left main coronary was large and had a distal 10-20% smooth narrowing. The left anterior descending artery was large, there are a few small diagonals and a few small septal perforators. There were minimal luminal irregularities in this vessel. The left circumflex system was moderate to large. There was one obtuse marginal and post lateral branch. There were minimal luminal irregularities this vessel. There is no significant obstructive disease There was 3+ tortuosities throughout all 3 vessels. The right coronary artery was large in size, dominant vessel with the PDA. There is a possible 10% tubular narrowing. And RV marginal supplied the predominance of the PDA territory. He had minimal luminal irregularities. Just about the location where a PDA would come off, there was a 40% tubular narrowing in the right coronary prior to the post lateral branch. Otherwise there are minimal luminal irregularities. GLEASON left ventriculography revealed mild to moderate reduction in global/ regional left ventricular systolic function. Overall ejection fraction was at least 25 - 50 %. There is no significant mitral regurgitation. Angiogram of the right femoral artery revealed the puncture site to be in a large vessel, above the bifurcation. It was suitable for Angio-Seal. Impression: No significant obstructive coronary disease Widely patent proximal LAD coronary stent There are multiple areas of 10-20% narrowing--throughout the coronary arterial tree The distal right coronary artery, supplying the posterior lateral branch of the right coronary, has at most a 40-50% eccentric tubular narrowing. Assessed as not to be critically stenosed Mild to moderate global LV systolic dysfunction, LVEF 45-50% Inferoapical hypokinesis Moderate elevation of LVEDP, 20 mmHg Total contrast used : 76 cc of Visipaque, baseline creatinine this morning was 1.7, last night creatinine was 1.8 Plan/recommendations: Based on this study, the patient does not have fixed, obstructive coronary disease causing her progressive, severe chest pain. She does have some reproducible chest wall pain and that may be the cause of her pain, although she thinks is different from her presenting pain. She does feel better today and we have treated for chest wall pain. It could also be GI related. Could be a component of anxiety. I will reassure her. We will treat for chest wall pain GI cause. She will be watched overnight. I will reassess her . renal function will be checked tomorrow postcontrast. Assuming she does well overnight and her creatinine is not significantly increased, she can be discharged home with follow-up with Dr. Allison Hair. Aggressive risk factor reduction will be continued to slow progression of atherosclerosis. Addenda: I saw the patient post-cath. the groin puncture site and distal pulse are stable. vital signs are stable and the patient will be observed closely overnight. Specimens: none sent Estimated blood loss: minimal Condition: stable Anesthesia: local, conscious sedation Disposition: floor Additional CC's: Allison Harrison Anesthesia: local, minimal conscious sedation Surgeon / Physician: Duong Merino Engineer Of System Development: other Estimated blood loss: minimal Specimens: none sent Condition: stable Disposition: floor
[2017-02-25] MEDS ORDERED: DEXTROSE 50% 25 GM/50 ML SYRINGE IV PRN (08:24)
[2017-02-25] MEDS ORDERED: GLUCAGON 1 MG VIAL IM PRN (08:24)
[2017-02-25] MEDS: ACETAMINOPHEN 325 MG TABLET PO SCH ×2 (09:06→22:00)
[2017-02-25] MEDS: traMADol 50 MG TABLET PO SCH ×2 (09:07→22:00)
[2017-02-25] MEDS: INSULIN REGULAR 100 UNIT/ML SUBCUT SCH ×3 (12:12→22:05)
[2017-02-26] MEDS: SODIUM CHLORIDE 0.9% 1,000 ML IV SCH (04:27)
[2017-02-26 05:52] LABS: Calcium 8.2 MG/DL (8.5-10.1); Osmolality,Calculated 285.3 MOS/KG (273-304); Potassium 3.5 MMOL/L (3.5-5.1)
--- NOTE | 2017-02-26 07:05 | EKG Report ---
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
[2017-02-26 08:33] VITALS: BP 108/62
[2017-02-26] MEDS: LOSARTAN 50 MG TABLET PO SCH (08:38)
[2017-02-26] MEDS: ISOSORBIDE MONONITRATE 30 MG TABLET PO SCH (08:39)
[2017-02-26] MEDS: ACETAMINOPHEN 325 MG TABLET PO SCH (08:39)
[2017-02-26] MEDS: GABAPENTIN 100 MG CAPSULE PO SCH (08:39)
[2017-02-26] MEDS: METOCLOPRAMIDE 10 MG TABLET PO SCH ×2 (08:39→11:07)
[2017-02-26] MEDS: PANTOPRAZOLE 40 MG TABLET PO SCH (08:40)
[2017-02-26] MEDS: traMADol 50 MG TABLET PO SCH (08:40)
[2017-02-26] MEDS: INSULIN REGULAR 100 UNIT/ML SUBCUT SCH (08:40)
[2017-02-26] MEDS: ASPIRIN EC 81 MG TABLET PO SCH (08:40)
[2017-02-26] MEDS: CARVEDILOL 3.125 MG TABLET PO SCH (08:40)
--- NOTE | 2017-02-26 10:32 | Discharge Summary ---
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 PONCE Patient was admitted February 24, 2017 directly from clinic for complaints of chest pain concerning for angina. Cardiac biomarkers negative, EKG did not reveal an acute MD. She subsequently underwent elective cardiac catheterization , performed by Dr. Merino, February 25, 2017 with the following noted: Impression: No significant obstructive coronary disease Widely patent proximal LAD coronary stent There are multiple areas of 10-20% narrowing--throughout the coronary arterial tree The distal right coronary artery, supplying the posterior lateral branch of the right coronary, has at most a 40-50% eccentric tubular narrowing. Assessed as not to be critically stenosed Mild to moderate global LV systolic dysfunction, LVEF 45-50% Inferoapical hypokinesis Moderate elevation of LVEDP, 20 mmHg Total contrast used : 76 cc of Visipaque, baseline creatinine this morning was 1.7, last night creatinine was 1.8 Plan/recommendations: Based on this study, the patient does not have fixed, obstructive coronary disease causing her progressive, severe chest pain. She does have some reproducible chest wall pain and that may be the cause of her pain, although she thinks is different from her presenting pain. She does feel better today and we have treated for chest wall pain. It could also be GI related. Could be a component of anxiety. I will reassure her. We will treat for chest wall pain GI cause. 2016: Overnight, patient has done well. Labs are stable, right groin soft, free of hematoma or bruit. Dr. Merino has seen, evaluated patient this morning and agrees she is ready for discharge home. She will be given a follow-up appoint with Dr. Ponce in approximately 2 weeks. At that visit the following will be obtained: BMP, magnesium and CBC. Cardiac discharge medications include resuming all of her preadmission cardiac meds including the following: Aspirin 81 mg orally daily Coreg 3.125 mg orally twice daily Isosorbide mononitrate 30 mg orally daily (new) Losartan 100 mg orally daily Nifedipine 90 mg orally each evening Pravastatin 40 mg orally each evening Eliquis 5 mg orally twice daily Hydrochlorothiazide 50 mg orally daily Pantoprazole 40mg orally BID (new dose) She will be treated for musculoskeletal chest pain with the following: Acetaminophen 325 mg orally twice daily 1 week Tramadol 50 mg orally twice daily 1 week Neurontin 100 mg orally 3 times daily for 1 week - Time spent with patient Time with patient DS: Less than 30 minutes Diagnosis - Discharge Diagnosis (1) CAD (coronary artery disease) Status: Chronic (2) CKD (chronic kidney disease) stage 2, GFR 60-89 ml/min Status: Chronic (3) Atypical chest pain Status: Chronic (4) Diabetes Status: Chronic (5) History of pulmonary embolus (PE) Status: Chronic (6) Hypertension Status: Chronic Specialty Discharge - Follow Up or Referrals Follow up with: Allison Ponce DO [Physician] - (2-3 weeks. BMP, Mg, CBC) Discharge Plan - Discharge Data Disposition: Disch To Home/Self Care Condition at Discharge: Stable Discharge Diet: heart healthy Activity: other (Post cath expectations) Hygiene: other (Post cath expectations) Weight Bearing at Discharge: other (Post cath expectations) Driving: other (Post cath expectations) Contact your physician if you experience:: fever over 101, Difficulty voiding, Redness or swelling, Nausea/Vomiting, Shortness of breath, Bleeding, pain uncontrolled by pain medications - Discharge Medications New Acetaminophen Tab [Tylenol Tab] 325 mg PO BID #14 tablet Isosorbide Mononitrate [Imdur] 30 mg PO DAILY #30 tablet traMADol TAB [Ultram] 50 mg PO BID tablet Gabapentin Cap/Tab [Neurontin Cap/Tab] 100 mg PO TID #21 capsule Pantoprazole Tab [Protonix Tab] 40 mg PO BID #60 tablet Continue Pravastatin [Pravachol] 40 mg PO BEDTIME NIFEdipine [Nifedipine ER] 90 mg PO DAILY Losartan Potassium 100 mg PO DAILY Insulin Detemir [Levemir] 35 unit SUBCUT DAILY Metoclopramide Tab [Reglan Tab] 10 mg PO QID Apixaban [Eliquis] 5 mg PO BID #30 tablet Aspirin [Ecotrin] 81 mg PO DAILY hydroCHLOROthiazide [Hydrochlorothiazide] 50 mg PO DAILY Carvedilol [Coreg] 3.125 mg PO BID Discontinued Pantoprazole Tab [Protonix Tab] 20 mg PO DAILY #30 tablet - Follow Up or Referral - Forms/Instructions Instructions: Left Heart Catheterization (DC), Chronic Hypertension (DC) Additional Discharge Instructions: Please remove dressing prior to discharge this morning. Also, I will be handwrite Rx for Tramadol and bring to you in a few minutes. Thanks. Resume Eliquis this evening. Thanks Exam - Constitutional Vitals: Period Temp Pulse Resp BP Sys/Barboza Pulse Ox Last 24 Hr 96.7 F-98.4 F 60-75 16-20 99-120/55-72 91-98 Exam: General: [Appears well with no apparent distress.] [Pleasant and cooperative. ] [Appears comfortable.] HEENT: [PERRL, normocephalic, atraumatic. Mucous membranes moist. No jaundice noted. Conjunctiva moist and clear, sclerae anicteric] Neck: No JVD/HJR, no thyromegaly or lymphadenopathy noted. No carotid bruit appreciated Cardiac: [Regular rate and rhythm.] [No murmur rub or gallop.] Lungs: [Clear to auscultation without accessory muscle use to assist the respiratory pattern.] Not requiring oxygen Abdomen: Soft, bowel sounds normoactive. Nontender and nondistended. No abdominal bruit or thrill noted. No masses noted. Musculoskeletal: No fluid collection. Decreased range of motion is noted. Extremities: Right groin soft, free of hematoma or bruit. No clubbing, cyanosis noted. [ No edema noted.] Upper extremity pulses 2+. Lower extremity pulses 2+. Capillary refill less than 3 seconds. Skin: No unusual lesions or rashes. No skin breakdown appreciated. Neuro: Awake, alert and oriented 3. Moves all extremities well without hemiparesis or paralysis. No essential tremor is appreciated. Discharge Results Procedures and tests throughout hospitalization: Pending Orders 02/27/17 04:00 Basic Metabolic Panel IN AM 02/28/17 04:00 Basic Metabolic Panel IN AM Labs on day of discharge: Labs from last 24 hours 02/26/17 02/26/17 02/25/17 07:19 04:58 19:53 Sodium 141 Potassium 3.5 Chloride 108 H Carbon Dioxide 25 Anion Gap 11.5 BUN 15 Creatinine 1.50 H GFR Calculation 44 BUN/Creatinine Ratio 10.00 Glucose 171 H POC Glucose 195 H 254 H Calculated Osmolality 285.3 Calcium 8.2 L 02/25/17 02/25/17 15:50 11:35 Sodium Potassium Chloride Carbon Dioxide Anion Gap BUN Creatinine GFR Calculation BUN/Creatinine Ratio Glucose POC Glucose 260 H 211 H Calculated Osmolality Calcium - Imaging and Cardiology Cardiology Procedure: report reviewed by DS: Provider Date of admission: 02/24/17 13:52 Primary care physician: Vickie Ambrose Attending physician on admission: DO Dr. Angelique Chiang Discharging clinician: Davida Thakkar NP Expected date of discharge: 02/26/17
== END 2017-02-26 11:46 | disposition home or self-care (01) ==
LOC: N.TELES
PROVIDERS: ADMIT Internal Medicine Cardiovascular Disease; ATTEND Internal Medicine Cardiovascular Disease
PROC: CLCCHCL (ICD-10-PCS; 2017-02-25 07:45)

== ENCOUNTER 2017-11-14 13:56 | Inpatient (IN) ==
[2017-11-14] MEDS ORDERED: ASPIRIN CHEW 81 MG TABLET PO STA (15:21)
[2017-11-14 15:43] LABS: Basophils % 0.4 % (0.0-0.8); Eosinophils # 0.2 10*3/uL (0.0-0.87); Eosinophils % 2.5 % (0.00-10.9); Hematocrit 33.6 VOL% (35.7-47.0); Hemoglobin 11.5 GM/DL (12.0-16.0); Immature Granulocytes % 0.7 %; Immature Granulocytes Absolute 0.06 #; Lymphocytes # 1.6 10*3/uL (1.4-4.0); Lymphocytes % 17.8 % (21.3-54.2); Mean Corpuscular HGB Conc 34.2 GM/DL (32-36); Mean Corpuscular Hemoglobin 33 PG (27-34); Mean Corpuscular Volume 95.2 FL (87-102); Mean Platelet Volume 9.8 FL (9.6-12.0); Monocytes # 0.7 10*3/uL (0.11-0.8); Monocytes % 7.4 % (1.7-12.7); Neutrophils # 6.4 10*3/uL (1.4-7.4); Neutrophils % 71.2 % (38.7-73.9); Platelet Count 193 T/CUMM (130-400); Red Blood Count 3.53 MC/CUMM (3.8-5.5); Red Cell Distribution Width 12.8 % (9.3-17.3); White Blood Count 9.1 T/CUMM (4-12)
[2017-11-14 15:56] LABS: PT Patient Result 10.8 SECS; Partial Thromboplastin Time 27.7 SECS (0-40)
[2017-11-14] MEDS ORDERED: ASPIRIN 325 MG TABLET ONE (16:02)
[2017-11-14 16:13] LABS: Blood Urea Nitrogen 18 MG/DL (7-18); Calcium 9.8 MG/DL (8.5-10.1); Glucose 166 MG/DL (74-106); Osmolality,Calculated 284.4 MOS/KG (273-304); Potassium 3.9 MMOL/L (3.5-5.1); Sodium 140 MMOL/L (136-145)
[2017-11-14] MEDS ORDERED: ONDANSETRON 4 MG/2 ML VIAL IV PRN (21:18)
[2017-11-14] MEDS ORDERED: DEXTROSE 50% 25 GM/50 ML VIAL IV PRN (21:49)
[2017-11-14] MEDS ORDERED: GLUCAGON 1 MG VIAL IM PRN (21:49)
[2017-11-15] MEDS: PRAVASTATIN 40 MG TABLET PO SCH ×2 (00:07→20:59)
[2017-11-15] MEDS: FAMOTIDINE 20 MG TABLET PO SCH ×3 (00:07→20:59)
[2017-11-15] MEDS: CARVEDILOL 3.125 MG TABLET PO SCH ×3 (00:07→20:59)
[2017-11-15 07:06] LABS: Basophils % 0.4 % (0.0-0.8); Eosinophils # 0.1 10*3/uL (0.0-0.87); Hematocrit 31.2 VOL% (35.7-47.0); Hemoglobin 10.7 GM/DL (12.0-16.0); Immature Granulocytes % 0.4 %; Immature Granulocytes Absolute 0.03 #; Lymphocytes # 1.2 10*3/uL (1.4-4.0); Lymphocytes % 14.9 % (21.3-54.2); Mean Corpuscular HGB Conc 34.3 GM/DL (32-36); Mean Corpuscular Hemoglobin 32 PG (27-34); Mean Corpuscular Volume 93.4 FL (87-102); Mean Platelet Volume 10.2 FL (9.6-12.0); Monocytes # 0.8 10*3/uL (0.11-0.8); Monocytes % 9.7 % (1.7-12.7); Neutrophils % 73.6 % (38.7-73.9); Platelet Count 180 T/CUMM (130-400); Red Blood Count 3.34 MC/CUMM (3.8-5.5); Red Cell Distribution Width 12.9 % (9.3-17.3); White Blood Count 8.1 T/CUMM (4-12)
[2017-11-15 07:35] LABS: Calcium 9.5 MG/DL (8.5-10.1); Osmolality,Calculated 286.3 MOS/KG (273-304); Potassium 3.6 MMOL/L (3.5-5.1)
[2017-11-15] MEDS: INSULIN GLARGINE 100 UNIT/ML SUBCUT SCH (08:15)
[2017-11-15] MEDS: SERTRALINE 50 MG TABLET PO SCH (08:16)
[2017-11-15] MEDS: ISOSORBIDE MONONITRATE 30 MG TABLET PO SCH (08:17)
[2017-11-15] MEDS: INSULIN LISPRO 100 UNIT/ML SUBCUT SCH ×4 (08:17→20:58)
[2017-11-15] MEDS: DONEPEZIL 10 MG TABLET PO SCH (08:17)
[2017-11-15] MEDS: LOSARTAN 50 MG TABLET PO SCH (08:17)
[2017-11-15] MEDS: METOCLOPRAMIDE 10 MG TABLET PO SCH ×4 (08:17→20:59)
[2017-11-15] MEDS: POTASSIUM CHLORIDE 20 MEQ TABLET PO SCH (08:17)
[2017-11-15] MEDS: MAGNESIUM OXIDE 400 MG TABLET PO SCH (08:17)
[2017-11-15] MEDS: hydroCHLOROthiazide 25 MG TABLET PO SCH (10:40)
[2017-11-15] MEDS: ASPIRIN EC 81 MG TABLET PO SCH (10:40)
[2017-11-15] MEDS: APIXABAN 5 MG TABLET PO SCH ×2 (10:40→20:59)
[2017-11-16] MEDS: METOCLOPRAMIDE 10 MG TABLET PO SCH ×4 (06:37→21:33)
[2017-11-16] MEDS: INSULIN LISPRO 100 UNIT/ML SUBCUT SCH ×4 (07:16→21:33)
[2017-11-16] MEDS: DONEPEZIL 10 MG TABLET PO SCH (10:02)
[2017-11-16] MEDS: ASPIRIN EC 81 MG TABLET PO SCH (10:03)
[2017-11-16] MEDS: LOSARTAN 50 MG TABLET PO SCH ×2 (10:03→10:13)
[2017-11-16] MEDS: CARVEDILOL 3.125 MG TABLET PO SCH ×2 (10:03→21:33)
[2017-11-16] MEDS: APIXABAN 5 MG TABLET PO SCH ×2 (10:04→21:33)
[2017-11-16] MEDS: hydroCHLOROthiazide 25 MG TABLET PO SCH ×2 (10:04→10:13)
[2017-11-16] MEDS: POTASSIUM CHLORIDE 20 MEQ TABLET PO SCH (10:04)
[2017-11-16] MEDS: ISOSORBIDE MONONITRATE 30 MG TABLET PO SCH (10:04)
[2017-11-16] MEDS: FAMOTIDINE 20 MG TABLET PO SCH ×2 (10:05→21:33)
[2017-11-16] MEDS: SERTRALINE 50 MG TABLET PO SCH (10:05)
[2017-11-16] MEDS: MAGNESIUM OXIDE 400 MG TABLET PO SCH (10:05)
[2017-11-16] MEDS: INSULIN GLARGINE 100 UNIT/ML SUBCUT SCH (10:06)
[2017-11-16] MEDS: MORPHINE 4 MG/1 ML VIAL IV PRN (16:56)
[2017-11-16] MEDS: PRAVASTATIN 40 MG TABLET PO SCH (21:33)
[2017-11-17] MEDS: INSULIN LISPRO 100 UNIT/ML SUBCUT SCH ×4 (07:30→20:59)
[2017-11-17] MEDS: DONEPEZIL 10 MG TABLET PO SCH (09:39)
[2017-11-17] MEDS: CARVEDILOL 3.125 MG TABLET PO SCH ×2 (09:39→20:59)
[2017-11-17] MEDS: LOSARTAN 50 MG TABLET PO SCH (09:39)
[2017-11-17] MEDS: ASPIRIN EC 81 MG TABLET PO SCH (09:39)
[2017-11-17] MEDS: METOCLOPRAMIDE 10 MG TABLET PO SCH ×4 (09:39→20:59)
[2017-11-17] MEDS: hydroCHLOROthiazide 25 MG TABLET PO SCH (09:40)
[2017-11-17] MEDS: ISOSORBIDE MONONITRATE 30 MG TABLET PO SCH (09:40)
[2017-11-17] MEDS: APIXABAN 5 MG TABLET PO SCH ×2 (09:40→20:59)
[2017-11-17] MEDS: POTASSIUM CHLORIDE 20 MEQ TABLET PO SCH (09:40)
[2017-11-17] MEDS: FAMOTIDINE 20 MG TABLET PO SCH ×2 (09:41→20:58)
[2017-11-17] MEDS: MAGNESIUM OXIDE 400 MG TABLET PO SCH (09:41)
[2017-11-17] MEDS: SERTRALINE 50 MG TABLET PO SCH (09:41)
[2017-11-17] MEDS: INSULIN GLARGINE 100 UNIT/ML SUBCUT SCH (09:44)
[2017-11-17] MEDS: MORPHINE 4 MG/1 ML VIAL IV PRN (17:15)
[2017-11-17] MEDS: PRAVASTATIN 40 MG TABLET PO SCH (20:58)
[2017-11-18 06:32] LABS: Basophils % 0.5 % (0.0-0.8); Eosinophils # 0.2 10*3/uL (0.0-0.87); Eosinophils % 4.1 % (0.00-10.9); Hematocrit 28.7 VOL% (35.7-47.0); Hemoglobin 9.7 GM/DL (12.0-16.0); Immature Granulocytes % 0.5 %; Immature Granulocytes Absolute 0.03 #; Lymphocytes # 1.4 10*3/uL (1.4-4.0); Mean Corpuscular HGB Conc 33.8 GM/DL (32-36); Mean Corpuscular Hemoglobin 32 PG (27-34); Mean Corpuscular Volume 94.7 FL (87-102); Monocytes # 0.6 10*3/uL (0.11-0.8); Monocytes % 9.9 % (1.7-12.7); Neutrophils # 3.4 10*3/uL (1.4-7.4); Platelet Count 204 T/CUMM (130-400); Red Blood Count 3.03 MC/CUMM (3.8-5.5); Red Cell Distribution Width 12.5 % (9.3-17.3); White Blood Count 5.6 T/CUMM (4-12)
[2017-11-18 07:04] LABS: Calcium 9.2 MG/DL (8.5-10.1); Osmolality,Calculated 275.1 MOS/KG (273-304); Potassium 3.7 MMOL/L (3.5-5.1)
[2017-11-18] MEDS: INSULIN LISPRO 100 UNIT/ML SUBCUT SCH ×4 (09:14→20:52)
[2017-11-18] MEDS: hydroCHLOROthiazide 25 MG TABLET PO SCH (09:15)
[2017-11-18] MEDS: APIXABAN 5 MG TABLET PO SCH ×2 (09:15→21:40)
[2017-11-18] MEDS: ISOSORBIDE MONONITRATE 30 MG TABLET PO SCH (09:15)
[2017-11-18] MEDS: ASPIRIN EC 81 MG TABLET PO SCH (09:15)
[2017-11-18] MEDS: MAGNESIUM OXIDE 400 MG TABLET PO SCH (09:15)
[2017-11-18] MEDS: CARVEDILOL 3.125 MG TABLET PO SCH ×2 (09:15→21:40)
[2017-11-18] MEDS: POTASSIUM CHLORIDE 20 MEQ TABLET PO SCH (09:15)
[2017-11-18] MEDS: SERTRALINE 50 MG TABLET PO SCH (09:16)
[2017-11-18] MEDS: METOCLOPRAMIDE 10 MG TABLET PO SCH ×4 (09:16→21:40)
[2017-11-18] MEDS: FAMOTIDINE 20 MG TABLET PO SCH ×2 (09:16→21:40)
[2017-11-18] MEDS: LOSARTAN 50 MG TABLET PO SCH (09:19)
[2017-11-18] MEDS: DONEPEZIL 10 MG TABLET PO SCH (09:20)
[2017-11-18] MEDS: INSULIN GLARGINE 100 UNIT/ML SUBCUT SCH (09:22)
[2017-11-18] MEDS: PRAVASTATIN 40 MG TABLET PO SCH (21:40)
[2017-11-19] MEDS: METOCLOPRAMIDE 10 MG TABLET PO SCH ×2 (06:32→12:12)
[2017-11-19] MEDS ORDERED: ALUMINUM/MAGNES/SIMETH MAX STR 30 ML UDCUP PO PRN (08:44)
[2017-11-19] MEDS: APIXABAN 5 MG TABLET PO SCH (09:34)
[2017-11-19] MEDS: INSULIN LISPRO 100 UNIT/ML SUBCUT SCH ×2 (09:34→12:14)
[2017-11-19] MEDS: SERTRALINE 50 MG TABLET PO SCH (09:34)
[2017-11-19] MEDS: DONEPEZIL 10 MG TABLET PO SCH (09:34)
[2017-11-19] MEDS: ISOSORBIDE MONONITRATE 30 MG TABLET PO SCH (09:35)
[2017-11-19] MEDS: CARVEDILOL 3.125 MG TABLET PO SCH (09:35)
[2017-11-19] MEDS: LOSARTAN 50 MG TABLET PO SCH (09:35)
[2017-11-19] MEDS: ASPIRIN EC 81 MG TABLET PO SCH (09:35)
[2017-11-19] MEDS: INSULIN GLARGINE 100 UNIT/ML SUBCUT SCH (09:35)
[2017-11-19] MEDS: FAMOTIDINE 20 MG TABLET PO SCH (09:35)
[2017-11-19 12:40] VITALS: BP 103/58
== END 2017-11-19 14:20 | disposition swing bed (61) | DRG 605 ==
LOC: N.ED 13:56 → N.EDINP 13:56 → SUATTDRO 21:15 → N.3E 23:27
PROVIDERS: ADMIT Internal Medicine Infectious Disease; ATTEND Internal Medicine Cardiovascular Disease

== ENCOUNTER 2018-01-16 00:23 | Inpatient (IN) ==
[2018-01-16 01:29] LABS: Troponin I Only 0.091 NG/ML (0.00-0.045)
[2018-01-16] MEDS ORDERED: ACETAMINOPHEN 325 MG TABLET PO PRN (02:00)
[2018-01-16] MEDS ORDERED: MORPHINE 4 MG/1 ML VIAL IV PRN (02:00)
[2018-01-16] MEDS ORDERED: ONDANSETRON 4 MG/2 ML VIAL IV PRN (02:00)
[2018-01-16] MEDS ORDERED: GLUCAGON 1 MG VIAL IM PRN (02:10)
[2018-01-16] MEDS ORDERED: DEXTROSE 50% 25 GM/50 ML VIAL IV PRN (02:10)
[2018-01-16] MEDS ORDERED: ENOXAPARIN 80 MG/0.8 ML SYRINGE SUBCUT SCH (05:00)
[2018-01-16 06:10] LABS: Basophils # 0.1 10*3/uL (0.0-0.2); Basophils % 0.6 % (0.0-0.8); Eosinophils # 0.2 10*3/uL (0.0-0.87); Eosinophils % 2.8 % (0.00-10.9); Hematocrit 30.9 VOL% (35.7-47.0); Hemoglobin 10.5 GM/DL (12.0-16.0); Immature Granulocytes % 0.5 %; Immature Granulocytes Absolute 0.04 #; Lymphocytes # 1.7 10*3/uL (1.4-4.0); Lymphocytes % 20.1 % (21.3-54.2); Mean Corpuscular Hemoglobin 32 PG (27-34); Mean Corpuscular Volume 93.9 FL (87-102); Mean Platelet Volume 10.1 FL (9.6-12.0); Monocytes # 0.7 10*3/uL (0.11-0.8); Neutrophils # 5.6 10*3/uL (1.4-7.4); Platelet Count 194 T/CUMM (130-400); Red Blood Count 3.29 MC/CUMM (3.8-5.5); Red Cell Distribution Width 13.5 % (9.3-17.3); White Blood Count 8.2 T/CUMM (4-12)
[2018-01-16 06:42] LABS: Albumin 3.1 G/DL (3.4-5.0); Bilirubin,Total 0.6 MG/DL (0.2-1.0); Calcium 9.1 MG/DL (8.5-10.1); Osmolality,Calculated 291.8 MOS/KG (273-304); Potassium 3.6 MMOL/L (3.5-5.1); Total Protein 6.9 G/DL (6.4-8.3)
[2018-01-16] MEDS: INSULIN GLARGINE 100 UNIT/ML SUBCUT SCH (08:51)
[2018-01-16] MEDS: CARVEDILOL 3.125 MG TABLET PO SCH ×2 (08:52→16:19)
[2018-01-16] MEDS: LOSARTAN 50 MG TABLET PO SCH (08:52)
[2018-01-16] MEDS: DOCUSATE SODIUM 100 MG CAPSULE PO SCH ×2 (08:53→20:37)
[2018-01-16] MEDS: MAGNESIUM OXIDE 400 MG TABLET PO SCH (08:53)
[2018-01-16] MEDS: POTASSIUM CHLORIDE 20 MEQ TABLET PO SCH (08:53)
[2018-01-16] MEDS: DONEPEZIL 10 MG TABLET PO SCH (08:53)
[2018-01-16] MEDS: METOCLOPRAMIDE 10 MG TABLET PO SCH ×4 (08:53→20:36)
[2018-01-16] MEDS: FUROSEMIDE 20 MG TABLET PO SCH (08:53)
[2018-01-16] MEDS: ASPIRIN EC 81 MG TABLET PO SCH (08:53)
[2018-01-16] MEDS: PANTOPRAZOLE 40 MG TABLET PO SCH (08:53)
[2018-01-16] MEDS: ISOSORBIDE MONONITRATE 30 MG TABLET PO SCH (08:53)
[2018-01-16] MEDS: SERTRALINE 50 MG TABLET PO SCH (08:53)
[2018-01-16] MEDS ORDERED: ENOXAPARIN 30 MG/0.3 ML SYRINGE SUBCUT SCH (09:00)
[2018-01-16] MEDS: INSULIN REGULAR 100 UNIT/ML SUBCUT SCH ×4 (09:28→21:59)
[2018-01-16] MEDS: ACETAMINOPHEN 325 MG TABLET PO SCH ×2 (14:33→20:35)
[2018-01-16] MEDS: GABAPENTIN 100 MG CAPSULE PO SCH ×3 (14:33→20:36)
[2018-01-16] MEDS: APIXABAN 5 MG TABLET PO SCH ×2 (15:17→20:36)
[2018-01-16] MEDS: PRAVASTATIN 40 MG TABLET PO SCH (20:36)
[2018-01-17 06:40] LABS: Troponin I Only 0.041 NG/ML (0.00-0.045)
[2018-01-17] MEDS: METOCLOPRAMIDE 10 MG TABLET PO SCH ×4 (06:51→21:44)
[2018-01-17] MEDS: INSULIN REGULAR 100 UNIT/ML SUBCUT SCH ×4 (07:58→21:45)
[2018-01-17] MEDS: INSULIN GLARGINE 100 UNIT/ML SUBCUT SCH (09:34)
[2018-01-17] MEDS: APIXABAN 5 MG TABLET PO SCH ×2 (09:35→21:44)
[2018-01-17] MEDS: FUROSEMIDE 20 MG TABLET PO SCH (09:35)
[2018-01-17] MEDS: SERTRALINE 50 MG TABLET PO SCH (09:36)
[2018-01-17] MEDS: MAGNESIUM OXIDE 400 MG TABLET PO SCH (09:36)
[2018-01-17] MEDS: ISOSORBIDE MONONITRATE 30 MG TABLET PO SCH (09:36)
[2018-01-17] MEDS: DONEPEZIL 10 MG TABLET PO SCH (09:36)
[2018-01-17] MEDS: GABAPENTIN 100 MG CAPSULE PO SCH ×3 (09:36→21:44)
[2018-01-17] MEDS: PANTOPRAZOLE 40 MG TABLET PO SCH (09:37)
[2018-01-17] MEDS: CARVEDILOL 3.125 MG TABLET PO SCH ×2 (09:37→16:50)
[2018-01-17] MEDS: ACETAMINOPHEN 325 MG TABLET PO SCH ×2 (09:38→21:44)
[2018-01-17] MEDS: DOCUSATE SODIUM 100 MG CAPSULE PO SCH ×2 (09:39→21:46)
[2018-01-17] MEDS: ASPIRIN EC 81 MG TABLET PO SCH (09:43)
[2018-01-17] MEDS: POTASSIUM CHLORIDE 20 MEQ TABLET PO SCH (09:43)
[2018-01-17] MEDS: LOSARTAN 50 MG TABLET PO SCH (09:43)
[2018-01-17] MEDS: PRAVASTATIN 40 MG TABLET PO SCH (21:45)
[2018-01-18] MEDS: VANCOMYCIN 50 MG/ML 60 ML/BOTTLE PO SCH ×2 (06:52→12:02)
[2018-01-18] MEDS: METOCLOPRAMIDE 10 MG TABLET PO SCH ×2 (06:53→10:42)
[2018-01-18 08:26] VITALS: BP 110/61
[2018-01-18 09:47] LABS: Basophils % 0.4 % (0.0-0.8); Eosinophils # 0.3 10*3/uL (0.0-0.87); Eosinophils % 3.3 % (0.00-10.9); Hematocrit 29.5 VOL% (35.7-47.0); Hemoglobin 9.8 GM/DL (12.0-16.0); Immature Granulocytes % 0.5 %; Immature Granulocytes Absolute 0.04 #; Lymphocytes # 1.6 10*3/uL (1.4-4.0); Lymphocytes % 18.4 % (21.3-54.2); Mean Corpuscular HGB Conc 33.2 GM/DL (32-36); Mean Corpuscular Hemoglobin 33 PG (27-34); Mean Platelet Volume 9.7 FL (9.6-12.0); Monocytes # 0.6 10*3/uL (0.11-0.8); Monocytes % 6.7 % (1.7-12.7); Neutrophils % 70.7 % (38.7-73.9); Platelet Count 202 T/CUMM (130-400); Red Blood Count 3.01 MC/CUMM (3.8-5.5); White Blood Count 8.5 T/CUMM (4-12)
[2018-01-18] MEDS: INSULIN GLARGINE 100 UNIT/ML SUBCUT SCH (10:40)
[2018-01-18] MEDS: POTASSIUM CHLORIDE 20 MEQ TABLET PO SCH (10:41)
[2018-01-18] MEDS: FUROSEMIDE 20 MG TABLET PO SCH (10:41)
[2018-01-18] MEDS: MAGNESIUM OXIDE 400 MG TABLET PO SCH (10:42)
[2018-01-18] MEDS: LOSARTAN 50 MG TABLET PO SCH (10:42)
[2018-01-18] MEDS: APIXABAN 5 MG TABLET PO SCH (10:42)
[2018-01-18 10:43] LABS: Calcium 8.2 MG/DL (8.5-10.1); Osmolality,Calculated 284.4 MOS/KG (273-304); Potassium 3.9 MMOL/L (3.5-5.1)
[2018-01-18] MEDS: DOCUSATE SODIUM 100 MG CAPSULE PO SCH (10:43)
[2018-01-18] MEDS: SERTRALINE 50 MG TABLET PO SCH (10:43)
[2018-01-18] MEDS: ACETAMINOPHEN 325 MG TABLET PO SCH (10:43)
[2018-01-18] MEDS: ASPIRIN EC 81 MG TABLET PO SCH (10:43)
[2018-01-18] MEDS: GABAPENTIN 100 MG CAPSULE PO SCH (10:43)
[2018-01-18] MEDS: CARVEDILOL 3.125 MG TABLET PO SCH (10:43)
[2018-01-18] MEDS: PANTOPRAZOLE 40 MG TABLET PO SCH (10:43)
[2018-01-18] MEDS: DONEPEZIL 10 MG TABLET PO SCH (10:43)
[2018-01-18] MEDS: ISOSORBIDE MONONITRATE 30 MG TABLET PO SCH (10:43)
[2018-01-18] MEDS: INSULIN REGULAR 100 UNIT/ML SUBCUT SCH ×2 (10:44→11:34)
== END 2018-01-18 14:35 | disposition home or self-care (01) | DRG 176 ==
LOC: N.ED 00:23 → N.EDINP 02:00 → N.5E 02:40
PROVIDERS: ADMIT Internal Medicine; ATTEND Internal Medicine